=== PATIENT | male | born 1965 | race Caucasian/White ===

== ENCOUNTER → 2016-10-21 15:00 | Emergency (ER) | payer SELFPAY ==
[~2016-10-21 15:00] MED LIST: Acetaminophen TAB* 325 MG PO ONE
[2016-10-21 15:55] VITALS: BP 136/71
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
--- NOTE | 2016-10-21 17:37 | RAD ---
Indication: Lower back pain. CT of the lumbar spine was obtained in the axial plane. Sagittal and coronal reconstructed images were obtained. The vertebral bodies appear normal in height and alignment. No evidence of fracture is noted. There is minimal disc space narrowing at T12-L1 and L1-L2. No focal protrusion is identified. No central or foraminal stenosis is identified. IMPRESSION: No fracture of the lumbar spine is noted. Minimal degenerative disc disease at T12-L1 and L1-L2.
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
== END | disposition home or self-care (01) ==
LOC: ED 15:00
DX: S39.012A Strain of muscle, fascia and tendon of lower back, initial encounter (principal); V49.9XXA Car occupant (driver) (passenger) injured in unspecified traffic accident, initial encounter; Y93.9 Activity, unspecified; Y92.9 Unspecified place or not applicable; Z87.891 Personal history of nicotine dependence; R06.02 Shortness of breath
CPT/HCPCS: 72128; 72131; 99282

== ENCOUNTER 2017-05-30 12:08 | Emergency (ER) | payer OTHER ==
[2017-05-30] MEDS ORDERED: Ondansetron ODT TAB* 4 MG PO ONE (12:43)
--- NOTE | 2017-05-30 13:18 | RAD ---
Indication: Headache. Fall striking back of head 3 weeks ago. Subsequent intermittent headaches. Comparison: September 18, 2010 Technique: Noncontrast CT vertex of skull through foramen magnum. Report: Encephalomalacia at the medial aspect of the LEFT frontal lobe secondary to previous LEFT anterior cerebral artery distribution infarct. No new region of cruz matter white matter obscuration, intra or extra-axial hemorrhage, or mass effect. The cerebral sulci, ventricles, and basal cisterns are within normal limits. Unremarkable partially visualized orbital contents. No suspicious calvarial or skull base lesions evident. Clear visualized paranasal sinuses and mastoid air spaces. Negative for scalp hematoma. IMPRESSION: 1. Old LEFT frontal lobe infarct. 2. No traumatic injury or acute intracranial process evident.
[2017-05-30 14:21] VITALS: BP 127/87
--- NOTE | 2017-05-30 18:34 | ED ---
Kimberly Chang Thomas, scribed for Gerardo Suero MD on 05/30/17 at 1311 . Head Injury - HPI Summary HPI Summary: The patient is a 51 year old male who fell three weeks ago on the ice and hit the back of his head. He has been having headaches for the last three weeks. The patient went to his primary care physician, who told him to present to the emergency department if he became nauseous. Today, the patient developed nausea and has vomited twice. The patient additionally complains of photophobia. The patient denies loss of consciousness during the fall. He denies gait disruption and neck pain in the emergency department. - History Of Current Complaint Chief Complaint: EDHeadInjury Stated Complaint: VOMITIN,FALL THREE WEEKS HEADAHCE Time Seen by Provider: 05/30/17 12:22 Hx Obtained From: Patient Mechanism Of Injury: Fall From A Standing Position - onto ice Onset/Duration: Started Weeks Ago - 3, Still Present Onset of Pain: Post Accident Severity Currently: Moderate Severity Initially: Moderate Pain Intensity: 5 Pain Scale Used: 0-10 Numeric Location of Head Injury: Other: - back of head Aggravating Factor(s): Other: - light Alleviating Factor(s): Heat Associated Signs And Symptoms: Negative - neck pain, gait disruption, Nausea, Vomiting, Other: - photophobia - Allergies/Home Medications Allergies/Adverse Reactions: Allergies Allergy/AdvReac Type Severity Reaction Status Date / Time MS Penicillins [Penicillins] Allergy Anaphylatic Verified 10/21/16 15:56 Shock PMH/Surg Hx/FS Hx/Imm Hx Endocrine/Hematology History: Denies: Hx Diabetes, Hx Thyroid Disease Cardiovascular History: Reports: Hx Angina, Hx Angioplasty - 1999, Hx Coronary Artery Disease, Hx Hypercholesterolemia, Hx Hypertension, Hx Myocardial Infarction - 1999 Denies: Hx Valvular Heart Disease, Other Cardiovascular Problems/Disorders Respiratory History: Denies: Hx Asthma, Hx Chronic Obstructive Pulmonary Disease (COPD) GI History: Denies: Hx Ulcer Neurological History: Reports: Hx Seizures - October 2005 - Surgical History Surgery Procedure, Year, and Place: Cardiac Stent at age 33. Screws in RIGHT arm, September 2010. Hx Anesthesia Reactions: No Infectious Disease History: No Infectious Disease History: Denies: Hx Clostridium Difficile, Hx Hepatitis, Hx Human Immunodeficiency Virus (HIV), Hx of Known/Suspected MRSA, Hx Shingles, Hx Tuberculosis, Hx Known/ Suspected VRE, Hx Known/Suspected VRSA, History Other Infectious Disease, Traveled Outside the [place] in Last 30 Days - Family History Known Family History: Positive: Blood Disorder Family History: DVT - brother - Social History Alcohol Use: Occasionally Alcohol Amount: 6 pack per month Hx Substance Use: No Substance Use Type: Reports: None Hx Tobacco Use: Yes Smoking Status (MU): Former Smoker Type: Cigarettes Amount Used/How Often: 1ppd Length of Time of Smoking/Using Tobacco: 28 years Have You Smoked in the Last Year: No Review of Systems Negative: Fever Positive: Photophobia Positive: Vomiting, Nausea Negative: Other - neck pain Neurological: Negative - gait disruption Positive: Headache All Other Systems Reviewed And Are Negative: Yes Physical Exam - Summary Physical Exam Summary: VITAL SIGNS: Reviewed. GENERAL: Patient is a well-developed and nourished male who is lying comfortable in the stretcher. Patient is not in any acute respiratory distress. HEAD AND FACE: No signs of trauma. No ecchymosis, hematomas or skull depressions. No sinus tenderness. EYES: PERRLA, EOMI x 2, No injected conjunctiva, no nystagmus. No photophobia. EARS: Hearing grossly intact. Ear canals and tympanic membranes are within normal limits. MOUTH: Oropharynx within normal limits. NECK: Supple, trachea is midline, no adenopathy, no JVD, no carotid bruit, no c- spine tenderness, neck with full ROM. No meningeal signs, no Kernig's or brudzinskis signs. CHEST: Symmetric, no tenderness at palpation LUNGS: Clear to auscultation bilaterally. No wheezing or crackles. CVS: Regular rate and rhythm, S1 and S2 present, no murmurs or gallops appreciated. ABDOMEN: Soft, non-tender. No signs of distention. No rebound no guarding, and no masses palpated. Bowel sounds are normal. EXTREMITIES: FROM in all major joints, no edema, no cyanosis or clubbing. NEURO: Alert and oriented x 3. No acute neurological deficits. Speech is normal and follows commands. SKIN: Dry and warm GCS: 15 Triage Information Reviewed: Yes Vital Signs On Initial Exam: Initial Vitals Temp Pulse Resp BP Pulse Ox 97.5 F 57 17 158/94 97 05/30/17 12:16 05/30/17 12:16 05/30/17 12:16 05/30/17 12:16 05/30/17 12:16 Vital Signs Reviewed: Yes Diagnostics - Vital Signs Vital Signs Temp Pulse Resp BP Pulse Ox 05/30/17 12:16 97.5 F 57 17 158/94 97 - Laboratory Lab Statement: Any lab studies that have been ordered have been reviewed, and results considered in the medical decision making process. - CT CT Brain CT Interpretation: No Acute Changes - 1. Old LEFT frontal lobe infarct. 2. No traumatic injury or acute intracranial process evident. Dr. Suero has reviewed this report. CT Interpretation Completed By: Radiologist Head Injury Course/Dx Assessment/Plan: The patient is a 51 year old male who fell three weeks ago on the ice and hit the back of his head. He has been having headaches for the last three weeks. The patient went to his primary care physician, who told him to present to the emergency department if he became nauseous. Today, the patient developed nausea and has vomited twice. The patient additionally complains of photophobia. The patient denies loss of consciousness during the fall. He denies gait disruption and neck pain in the emergency department. The CT is negative for intracranial pathology. The patient was given Zofran in the emergency department, and the symptoms disappeared. The patient is asymptomatic and the neurological exam was normal. Therefore, the patient will be discharged home to follow up with primary care. - Diagnoses Differential Diagnosis/HQI/PQRI: Cervical Sprain, Concussion Without LOC, Contusion, Hematoma Provider Diagnoses: Head contusion Discharge - Discharge Plan Condition: Stable Disposition: HOME Prescriptions: Ondansetron TAB* [Zofran 4 MG Tab*] 4 mg PO Q6H PRN #10 tab PRN Reason: Nausea Patient Education Materials: Contusion in Adults (ED) Referrals: Lupe Rivera MD [Primary Care Provider] - 3 Days Additional Instructions: Follow up with your primary care provider in three days. Return to the emergency department for any new or worsening symptoms. The documentation as recorded by the Kimberly allred Thomas accurately reflects the service I personally performed and the decisions made by Pio luna Walter, MD.
== END 2017-05-30 14:20 | disposition home or self-care (01) ==
LOC: ED 12:08
DX: S00.93XA Contusion of unspecified part of head, initial encounter (principal); R51 Headache; H53.149 Visual discomfort, unspecified; R11.2 Nausea with vomiting, unspecified; Z87.891 Personal history of nicotine dependence; W00.9XXA Unspecified fall due to ice and snow, initial encounter; Y92.9 Unspecified place or not applicable; Z88.0 Allergy status to penicillin
CPT/HCPCS: 70450; 99282; A9270-GY

== ENCOUNTER 2017-06-25 13:57 | Inpatient (IN) | payer OTHER ==
[2017-06-25] MEDS ORDERED: NS 0.9% 1000 ML* 1,000 ML IV ONE (14:34)
[2017-06-25 15:01] LABS: ABS Basophils 0 10^3/ul (0-0.2); ABS Eosinophils 0.1 10^3/ul (0-0.6); ABS Lymphocytes 1.1 10^3/ul (1.0-4.8); ABS Monocytes 0.5 10^3/ul (0-0.8); ABS Neutrophils 5.1 10^3/ul (1.5-7.7); ABS Nucleated RBC 0 10^3/ul; Eosinophil % 1.2 % (0-6); Hematocrit 43 % (42-52); Hemoglobin 14.9 g/dl (14.0-18.0); Lymphocyte % 16.6 % (25-47); Mean Corpuscular HGB Conc 35 g/dl (31-36); Mean Corpuscular Hemoglobin 31 pg (27-31); Mean Corpuscular Volume 89 fL (80-94); Mean Platelet Volume 8 um3 (7.4-10.4); Nucleated Red Blood Cells % 0; Platelet Count 229 10^3/ul (150-450); Red Cell Distribution Width 13 % (10.5-15); White Blood Count 6.9 10^3/ul (3.5-10.8)
[2017-06-25 15:09] LABS: INR 1.01 (0.77-1.02)
[2017-06-25 15:17] LABS: EGFR Non-African American 87.2 (>60)
[2017-06-25] MEDS ORDERED: Ondansetron TAB* 4 MG PO PRN (16:20)
[2017-06-25] MEDS ORDERED: Acetaminophen TAB* 325 MG PO PRN (16:20)
[2017-06-25] MEDS ORDERED: Ondansetron INJ* 2 MG/ML VIAL IV PRN (16:22)
[2017-06-25] MEDS ORDERED: Acetaminophen TAB* 325 MG PO ONE (17:08)
--- NOTE | 2017-06-25 17:25 | PN ---
Progress Note - Progress Note Date of Service: 06/25/17 Note: Neurosurgery Admit Note Patient with fall at end of April. Has had progressive headaches for 4 weeks. referred for outpatient MRI today which showed bilateral subacute SDH.Seen in ER and was awake,alert PMH of stroke several yrs ago and seizure disordeer on Lamictal Exam reveals mild weakness LUE with pronator drift Plan Admit for bilateral maura hole drainage of SDH in AM Full H and P dictated.
[2017-06-25] MEDS: lamoTRIgine TAB(*) 100 MG PO SCH (20:35)
[2017-06-25] MEDS: HYDROcodone/ACETAMIN 5-325 MG* 1 TAB PO PRN (20:35)
--- NOTE | 2017-06-25 20:52 | HP ---
CC: Dr. Jaramillo; Dr. Meek * HISTORY AND PHYSICAL: DATE OF ADMISSION: 06/25/17 TIME OF ADMISSION: 5 p.m. CHIEF COMPLAINT: Headache. HISTORY OF PRESENT ILLNESS: This is a 51-year-old man with a history of coronary artery disease and cerebro-vascular disease, who presents from home with 6 weeks of a headache after a fall on the ice and was found to have a subdural hematoma today on an outpatient MRI. The fall occurred on 05/13/17 at his home when he walked outside on an icy porch and fell backwards and hit his head. At that time, his heard him fall and came out to evaluate to him. He was awake the whole time and has recollection of the event, but she says he was confused and could not talk to her for a few seconds. However, he felt better after a few seconds and continued on with his day and decided not to come for evaluation. However, over the next several days, he had ongoing headaches, so he went to his primary care physician. His PCP said to come to the emergency department if he experienced vomiting. On 05/30/17, nausea and vomiting began. So, he presented to the emergency department, where a head CT was obtained at that time. The brain CT report is read as old left frontal lobe infarct and no traumatic injury or acute intracranial process was evident. Since that time, he has had ongoing daily headaches that have been unrelenting in nature. He localizes them to his bilateral temples. The pain is constant and initially was aided with Tylenol; however, recently Tylenol has not helped at all. He has had ongoing nausea and vomiting and his also described some periods of confusion such as when he was attempting to back into the garage and hit the gas pedal instead of the breaks. He had been continuing to work; however, was unable to over the past 2 weeks due to the headache. He has been more sleepy than usual. He does not notice any change in the headache with position, lying down versus sitting up. However, does note that the headache is worse at the end of the day than at the beginning of the day. He denies any other trauma since 05/13/17. No falls or accidents otherwise. PAST MEDICAL HISTORY: 1. Coronary artery disease, status post [place] [address] Faria. 2. CVA, on 01/29/04, followed by Dr. Jaramillo. 3. Hypertension. HOME MEDICATIONS: 1. Lamotrigine 200 mg b.i.d. 2. Enalapril 10 mg daily. 3. Pravastatin 40 mg daily. 4. Aspirin 81 mg daily. SOCIAL HISTORY: He is a former smoker. He does not drink alcohol or use any other drugs. He lives in a house with his , and works. REVIEW OF SYSTEMS: He denies recent fevers, chills, vision changes, auditory changes, slurred speech, weakness, numbness, chest pain, shortness of breath, palpitations. PHYSICAL EXAMINATION GENERAL: Alert, well-appearing male, in no distress. He is oriented x3 and has an appropriate affect. VITAL SIGNS: Blood pressure 139/79, heart rate 66, pulse ox 97% on room air, temperature 98 degrees. HEENT: Pupils are 3 mm bilaterally and reactive to light. He does have nystagmus present on both sides that fatigues after about 8 seconds. He has no pharyngeal exudates or erythema. No mucosal lesions. His face is symmetric. NECK: No . No cervical adenopathy. Thyroid is not palpable. CHEST: Regular rate and rhythm. No murmurs. PMI nondisplaced. LUNGS: Clear bilaterally. ABDOMEN: Soft, nontender, nondistended. No guarding or rebound. EXTREMITIES: Healed incision is present in the right forearm. No lower extremity edema is noted. No rashes or ulcers. NEUROLOGIC: Strength is 5+ in all 4 extremities. Sensation is grossly intact. His coordination is intact. His recall is intact as is his short-term memory and object naming. DIAGNOSTIC STUDIES/LAB DATA: White blood cells 6.9, hemoglobin 14.9, platelets 229. INR of 1.0. Sodium 135, potassium 4.1, chloride 100, bicarb 27 , BUN 17, creatinine 0.91, glucose 121. MRI of the brain with and without contrast today shows large bilateral subacute frontoparietal subdural hematomas with subfalcine shift to the left and effacement of the basal cistern. ASSESSMENT AND PLAN: This is a 51-year-old man with history of coronary artery disease and cerebrovascular accident, who presents after an outpatient MRI found large subdural hematoma approximately 6 weeks after a fall at home. 1. Large bilateral frontoparietal subdural hematoma. He will be admitted under the hospitalist service. Dr. Meek has seen and evaluated the patient in the emergency department and plans to take him to the OR for evacuation of the subdural hematoma tomorrow. This evening, we will manage his pain and his blood pressure is currently well controlled and his aspirin will be held. 2. Coronary artery disease. As above, his aspirin will be held. He is not a beta akiko at home. We will not initiate one at this time, but we will continue his statin. He has no chest pain and has good exercise tolerance. 3. Cerebrovascular accident in 2003. He has no residual deficits from this. Again, we will hold his aspirin. 4. DVT prophylaxis. SCDs given the subdural hematoma. 5. Diet. Liquids for tonight and n.p.o. after midnight. [id number]/[facility] #: [id number] MTDRoni
--- NOTE | 2017-06-25 21:01 | HP ---
ADMISSION HISTORY AND PHYSICAL: DATE OF ADMISSION: 06/25/17 CHIEF COMPLAINT: Headache. HISTORY OF PRESENT ILLNESS: This 51-year-old gentleman fell back at the end of April hitting his head on a sidewalk. He did not lose consciousness, but since that time, has had difficulty with headaches. He was seen at [facility] on 05/30/17, at which time a CT scan of his brain was done, which was interpreted as showing no acute changes. In retrospect, the patient was noted to have isodense subdural hematomas at that time. He has continued to have headaches and was scheduled for an outpatient MRI study, which he had today. While undergoing his MRI scan, he got nauseated and had emesis. His MRI scan showed significant bilateral subacute subdural hematomas and he was sent to the emergency room by Neurology. When seen in the emergency room, he is awake, alert and complained of headache. PAST MEDICAL HISTORY: Significant for previous stroke leaving him with some _ right____- sided weakness several years ago. He also has a seizure disorder for which he currently takes Lamictal and is under the care of Dr. Jaramillo. MEDICATIONS: Include: 1. Enalapril 10 mg p.o. daily. 2. Lamictal 200 mg p.o. twice daily. 3. Zofran 4 mg p.o. every 6 hours as needed for nausea. 4. Tylenol 650 mg p.o. every 4 hours as needed for pain. 5. He was also taking an aspirin daily. ALLERGIES: He is allergic to PENICILLIN. FAMILY HISTORY: Family history was taken and is noncontributory to this illness. SOCIAL HISTORY: Revealed that he has a supportive family and does not smoke or drink at this time. REVIEW OF SYSTEMS: A system review was performed and other than his cardiovascular review with hypertension and his neurologic review as noted above , the remainder of his system review did not contribute to this illness. PHYSICAL EXAMINATION VITAL SIGNS: He was noted to have a blood pressure of 133/86 with a pulse of 66 and respirations of 16. HEENT: Head was normocephalic with no scalp contusion or tenderness. Eyes revealed full range of extraocular movements with pupils that were equal and reactive to light. NECK: Supple. LUNGS: Clear to auscultation. CARDIOVASCULAR: Revealed a regular rate and rhythm. ABDOMEN: Soft with normal bowel sounds. No tenderness. EXTREMITIES: Revealed full range of active motion. NEUROLOGIC: Reveals his mental status to be normal. Motor examination revealed a mild hemiparesis in his left upper extremity with a component of drift noted. Sensory exam was intact to pinprick and light touch. Cranial nerves II through XII are intact. DIAGNOSTIC STUDIES: His MRI study was reviewed and showed significant bilateral subdural hematomas, right greater than left. IMPRESSION: Bilateral subdural hematomas. He is being admitted for drainage of his bilateral subdural collections. [id number]/[facility] #: [id number] [facility]
[2017-06-26] MEDS: HYDROcodone/ACETAMIN 5-325 MG* 1 TAB PO PRN (03:55)
[2017-06-26 06:19] LABS: ABS Basophils 0 10^3/ul (0-0.2); ABS Eosinophils 0.1 10^3/ul (0-0.6); ABS Lymphocytes 1.7 10^3/ul (1.0-4.8); ABS Monocytes 0.5 10^3/ul (0-0.8); ABS Neutrophils 3.6 10^3/ul (1.5-7.7); ABS Nucleated RBC 0 10^3/ul; Hematocrit 40 % (42-52); Hemoglobin 13.8 g/dl (14.0-18.0); Lymphocyte % 28.1 % (25-47); Mean Corpuscular HGB Conc 35 g/dl (31-36); Mean Corpuscular Hemoglobin 31 pg (27-31); Mean Corpuscular Volume 89 fL (80-94); Mean Platelet Volume 8 um3 (7.4-10.4); Nucleated Red Blood Cells % 0.2; Platelet Count 220 10^3/ul (150-450); Red Blood Count 4.46 10^6/ul (4.0-5.4); Red Cell Distribution Width 13 % (10.5-15); White Blood Count 5.9 10^3/ul (3.5-10.8)
[2017-06-26 06:41] LABS: EGFR Non-African American 96.9 (>60)
[2017-06-26] MEDS ORDERED: Famotidine IV* 10 MG/ML 2 ML (20 mg) IV SLOW PU ONE (08:33)
[2017-06-26] MEDS ORDERED: DiMENhydriNATE IV* 50 MG/ML VIAL IV PUSH PRN (08:37)
[2017-06-26] MEDS ORDERED: HYDROmorphone INJ* 1 MG/ML CARPUJECT SYRINGE IV PRN (08:37)
[2017-06-26] MEDS ORDERED: Acetaminophen IV 1GM/100ML * 1,000 MG/100 ML VIAL IVPB ONE (08:37)
[2017-06-26] MEDS ORDERED: Naloxone* 0.4 MG/ML 1 ML VIAL IV PRN (08:37)
[2017-06-26] MEDS ORDERED: fentaNYL* 50 MCG/ML 5 ML VIAL (250 MCG VIAL) ONE (08:58)
[2017-06-26] MEDS ORDERED: Midazolam* 1 MG/ML 5 ML VIAL (5 MG) ONE (08:58)
[2017-06-26] MEDS ORDERED: fentaNYL* 50 MCG/ML 2 ML VIAL (100 MCG VIAL) ONE (08:58)
[2017-06-26] MEDS ORDERED: Succinylcholine* 20 MG/ML 10 ML VIAL ONE (08:59)
[2017-06-26] MEDS ORDERED: Ondansetron INJ* 2 MG/ML VIAL ONE (08:59)
[2017-06-26] MEDS ORDERED: DiMENhydriNATE IV* 50 MG/ML VIAL ONE (08:59)
[2017-06-26] MEDS ORDERED: Propofol* 10 MG/ML 20 ML BTL IV PUSH ONE (08:59)
[2017-06-26] MEDS ORDERED: Dexamethasone IV* 4 MG/ML 1 ML (4 MG) ONE (08:59)
[2017-06-26] MEDS: Enalapril TAB* 5 MG PO SCH (09:00)
[2017-06-26] MEDS ORDERED: Clindamycin 900 MG IVPREMIX(* 0 MG/0 ML SDV IV ONE (09:08)
[2017-06-26] MEDS ORDERED: Famotidine IV* 10 MG/ML 2 ML (20 mg) ONE (09:13)
[2017-06-26] MEDS ORDERED: Lidocaine 1% MPF wEPI 200,000* 30 ML SDV ONE (09:18)
[2017-06-26] MEDS ORDERED: Thrombin 5,000 UNITS* 1 APPLIC KIT - topical use - TOPICAL ONE (09:18)
[2017-06-26] MEDS: lamoTRIgine TAB(*) 100 MG PO SCH ×2 (09:19→21:57)
[2017-06-26] MEDS ORDERED: Clindamycin 900 MG IVPREMIX(* 900 MG/50 ML SDV IV ONE (09:54)
[2017-06-26] MEDS ORDERED: Cisatracurium* 2 MG/ML MDV 5 ML ONE (10:08)
[2017-06-26] MEDS ORDERED: Glycopyrrolate IV* 0.2 MG/ML 1 ML VIAL ONE (10:22)
[2017-06-26] MEDS ORDERED: Neostigmine Methylsulfate* 1 MG/ML 10 ML VIAL (1 mg/ml) ONE (10:22)
[2017-06-26] MEDS ORDERED: Magnesium Hydroxide LIQ* 30 ML UDC PO PRN (10:40)
[2017-06-26] MEDS ORDERED: Labetalol IV* 5 MG/ML 20 ML VIAL IV PUSH PRN (10:49)
[2017-06-26] MEDS ORDERED: Acetaminophen IV 1GM/100ML * 100 ML IVPB SCH (11:00)
[2017-06-26] MEDS ORDERED: Acetaminophen IV 1GM/100ML * 100 ML ONE (11:00)
[2017-06-27 04:53] LABS: ABS Basophils 0 10^3/ul (0-0.2); ABS Eosinophils 0 10^3/ul (0-0.6); ABS Lymphocytes 1.3 10^3/ul (1.0-4.8); ABS Monocytes 0.6 10^3/ul (0-0.8); ABS Neutrophils 5.4 10^3/ul (1.5-7.7); ABS Nucleated RBC 0 10^3/ul; Eosinophil % 0.2 % (0-6); Hematocrit 37 % (42-52); Hemoglobin 12.8 g/dl (14.0-18.0); Lymphocyte % 17.8 % (25-47); Mean Corpuscular HGB Conc 35 g/dl (31-36); Mean Corpuscular Hemoglobin 31 pg (27-31); Mean Corpuscular Volume 88 fL (80-94); Mean Platelet Volume 8 um3 (7.4-10.4); Nucleated Red Blood Cells % 0; Platelet Count 213 10^3/ul (150-450); Red Blood Count 4.13 10^6/ul (4.0-5.4); Red Cell Distribution Width 13 % (10.5-15); White Blood Count 7.4 10^3/ul (3.5-10.8)
[2017-06-27 05:02] LABS: EGFR Non-African American 95.6 (>60)
--- NOTE | 2017-06-27 08:10 | RAD ---
HISTORY: Postop bilateral subdural hematoma COMPARISONS: MRI dated June 25, 2009 TECHNIQUE: Multiple contiguous axial CT scans were obtained of the head without intravenous contrast. FINDINGS: HEMORRHAGE/INFARCT: There is no hemorrhage or acute infarct. MASSES/SHIFT: There has been interval resolution of the subfalcine shift. The basal cisterns are preserved. There is no mass. EXTRA-AXIAL SPACES: There is been interval evacuation of the subdural hematomas bilaterally. There is minimal residual on the right measuring 0.2 cm in depth. There is pneumocephalus bilaterally. Surgical drains are noted in the subdural spaces bilaterally. SULCI AND VENTRICLES: The sulci and ventricles are normal in size and position for the patient's stated age. CEREBRUM: There is stable left frontal encephalomalacia. BRAINSTEM: There are no focal parenchymal abnormalities. CEREBELLUM: There are no focal parenchymal abnormalities. VESSELS: The vessels are grossly normal. PARANASAL SINUSES: The paranasal sinuses are clear. ORBITS: The orbits are unremarkable. BONES AND SOFT TISSUE: There is post surgical change to the skull. There is subcutaneous emphysema. OTHER: None IMPRESSION: 1. STATUS POST SURGICAL EVACUATION OF BILATERAL SUBDURAL HEMATOMAS. SUBDURAL DRAINS ARE NOTED. THERE IS ASSOCIATED PNEUMOCEPHALUS. 2. LEFT FRONTAL ENCEPHALOMALACIA CONSISTENT WITH REMOTE INFARCT.
--- NOTE | 2017-06-27 10:50 | PN ---
Progress Note - Progress Note Date of Service: 06/27/17 SOAP: Subjective: []POD # 1 Awake,alert,headache relieved Anxious to sit up Objective: [] Neuro intact F/U CT bilat pneumocephalus,subdural collections minimal now Assessment: []Satis post op course Plan: []Transfer to floor Drains removed Increase activity level
[2017-06-27] MEDS: Enalapril TAB* 5 MG PO SCH (10:55)
[2017-06-27] MEDS: lamoTRIgine TAB(*) 100 MG PO SCH ×2 (10:55→20:47)
--- NOTE | 2017-06-27 14:04 | OP ---
OPERATIVE REPORT: DATE OF OPERATION: 06/26/17 DATE OF : 61 SURGEON: Mark Anthony Meek MD. SEAT TRIMMER: JUNAID Stark ANESTHESIA: General. PRE-OP DIAGNOSIS: Bilateral subacute subdural hematomas. POST-OP DIAGNOSIS: Bilateral subacute subdural hematomas. OPERATIVE PROCEDURE: Bilateral maura hole drainage of subacute subdural hematomas. DESCRIPTION OF PROCEDURE: After satisfactory general anesthesia was obtained, the patient was placed in the operating room table in the supine position with the head supported on a donut headrest. The frontal region was then clipped, prepped and draped in sterile manner for bifrontal maura hole placem ent. [place] holes were outlined along the proximally, the coronal suture bilaterally, a distance of ap proximately 4 cm from the vertex on either side. Matching 3 cm vertical incisions were marked. The initial exposure was on the right side. The incision was infiltrated with 1% Xylocaine with epinephr ine after it was turned down sharply to the periosteum which was stripped away. A maura hole was plac ed with power drill. The dura was then opened with the monopolar cautery and brisk flow of maroon co lored subdural fluid exited under pressure. The subdural space was irrigated. A ventricular cathete r was then placed in the subdural space and also irrigated and tunneled anteriorly to serve as a post operative subdural drain. The wound was then irrigated again, after which a piece of Gelfoam was seth zhang over the maura hole defect. The galea was then approximated with 3-0 Vicryl suture. In a similar manner, maura hole was placed on the left side. The dura was opened and again fairly good flow of ma roon colored subdural fluid under pressure was noted. A drain was also placed in the subdural space i n this side and tunneled out anteriorly to the serve as a postoperative subdural drain. The wound wa s irrigated after which a piece of Gelfoam was placed over the maura hole defect and the galea reappro ximated with 3-0 Vicryl. Shannan were used for the skin bilaterally. The estimated blood loss was l ess than 50 cc. The final sponge, padding, and needle counts were correct. The patient was taken to the recovery room, extubated and in stable condition. [id number]/[facility] #: [id number]
[2017-06-28 07:28] VITALS: BP 124/69
[2017-06-28] MEDS: Enalapril TAB* 5 MG PO SCH (08:52)
[2017-06-28] MEDS: lamoTRIgine TAB(*) 100 MG PO SCH (08:53)
--- NOTE | 2017-06-30 19:39 | ED ---
Laura Chang Julia, scribed for Holland Serrano MD on 06/25/17 at 1438 . Headache - HPI Summary HPI Summary: This patient is a 51 year old M presenting [place] [facility] accompanied by his due to intermittent headaches since May 13 2017 after her fell and hit his head. Patient reports intermittent vomiting for the past few weeks and right extremity weakness. He reports he has coby taking Tylenol for his headaches. Patient was sent by his primary care physician to receive an MRI for his symptoms. Patient's states he had a CT scan performed that came back negative. - History Of Current Complaint Chief Complaint: EDHeadache Stated Complaint: FALL HEADPAIN SENT FROM Time Seen by Provider: 06/25/17 14:11 Hx Obtained From: Patient, Family/[employer] Onset/Duration: Started weeks ago, Still Present Timing: Intermittent, Lasting: Associated Signs And Symptoms: Vomiting Related History: Recent Trauma: - 05/13/17 - Allergies/Home Medications Allergies/Adverse Reactions: Allergies Allergy/AdvReac Type Severity Reaction Status Date / Time Penicillins Allergy Anaphylatic Verified 06/26/17 08:37 Shock Home Medications: Home Medications Aspirin EC Low Dose* [Ecotrin EC Low Dose 81 MG*] 81 mg PO DAILY 06/25/17 [ History Confirmed 06/25/17] PMH/Surg Hx/FS Hx/Imm Hx Endocrine/Hematology History: Denies: Hx Diabetes, Hx Thyroid Disease Cardiovascular History: Reports: Hx Angina, Hx Angioplasty - 1999, Hx Coronary Artery Disease, Hx Hypercholesterolemia, Hx Hypertension, Hx Myocardial Infarction - 1999 Denies: Hx Pacemaker/ICD, Hx Valvular Heart Disease, Other Cardiovascular Problems/Disorders Respiratory History: Denies: Hx Asthma, Hx Chronic Obstructive Pulmonary Disease (COPD) GI History: Denies: Hx Ulcer History: Denies: Hx Renal Disease Sensory History: Denies: Hx Hearing Aid Neurological History: Reports: Hx Seizures - October 2005 Psychiatric History: Denies: Hx Panic Disorder - Surgical History Surgery Procedure, Year, and Place: Cardiac Stent at age 33. Screws in RIGHT arm, September 2010. Hx Anesthesia Reactions: No Infectious Disease History: No Infectious Disease History: Denies: Hx Clostridium Difficile, Hx Hepatitis, Hx Human Immunodeficiency Virus (HIV), Hx of Known/Suspected MRSA, Hx Shingles, Hx Tuberculosis, Hx Known/ Suspected VRE, Hx Known/Suspected VRSA, History Other Infectious Disease, Traveled Outside the [place] in Last 30 Days - Family History Known Family History: Positive: Blood Disorder Family History: DVT - brother - Social History Alcohol Use: Occasionally Alcohol Amount: 6 pack per month Hx Substance Use: No Substance Use Type: Reports: None Hx Tobacco Use: Yes Smoking Status (MU): Former Smoker Type: Cigarettes Amount Used/How Often: 1ppd Length of Time of Smoking/Using Tobacco: 28 years Have You Smoked in the Last Year: No Review of Systems Positive: Vomiting Positive: Headache, Weakness - right extremities All Other Systems Reviewed And Are Negative: Yes Physical Exam - Summary Physical Exam Summary: Appearance: Well-appearing, Well-nourished Skin: Warm, Dry, No rash Eyes: Normal, PERRL, EOMI, sclera anicteric ENT: Normal Neck: Supple, nontender Respiratory: Clear to auscultation Cardiovascular: S1, S2, no murmur, no rub, no gallop Abdomen: Soft, nontender, no organomegaly Bowel sounds: Present Musculoskeletal: Normal, Strength/ROM Intact, no edema, pulses symmetrical Neurological:, A&Ox3, cranial nerves II-XII WNL, follows commands, gait not tested, sensation intact to pin and light touch, minimal right facial weakness, slight slurred speech Psychiatric: affect normal, behavior appropriate, dressed appropriately, judgment intact Triage Information Reviewed: Yes Vital Signs On Initial Exam: Initial Vitals Temp Pulse Resp BP Pulse Ox 98.0 F 70 18 131/81 97 06/25/17 14:00 06/25/17 14:00 06/25/17 14:00 06/25/17 14:00 06/25/17 14:00 Vital Signs Reviewed: Yes Diagnostics - Vital Signs Vital Signs Temp Pulse Resp BP Pulse Ox 06/25/17 14:00 98.0 F 70 18 131/81 97 - Laboratory Lab Results: Lab Results 06/25/17 06/25/17 06/25/17 Range/Units 14:49 14:49 14:49 WBC 6.9 (3.5-10.8) 10^3/ul RBC 4.80 (4.0-5.4) 10^6/ul Hgb 14.9 (14.0-18.0) g/dl Hct 43 (42-52) % MCV 89 (80-94) fL MCH 31 (27-31) pg MCHC 35 (31-36) g/dl RDW 13 (10.5-15) % Plt Count 229 (150-450) 10^3/ul MPV 8 (7.4-10.4) um3 Neut % (Auto) 74.3 (38-83) % Lymph % (Auto) 16.6 L (25-47) % Chaves % (Auto) 7.3 H (0-7) % Eos % (Auto) 1.2 (0-6) % Baso % (Auto) 0.6 (0-2) % Absolute Neuts (auto) 5.1 (1.5-7.7) 10^3/ul Absolute Lymphs (auto) 1.1 (1.0-4.8) 10^3/ul Absolute Monos (auto) 0.5 (0-0.8) 10^3/ul Absolute Eos (auto) 0.1 (0-0.6) 10^3/ul Absolute Basos (auto) 0 (0-0.2) 10^3/ul Absolute Nucleated RBC 0 10^3/ul Nucleated RBC % 0 INR (Anticoag Therapy) 1.01 (0.77-1.02) APTT 31.3 (26.0-36.3) seconds Sodium 135 (133-145) mmol/L Potassium 4.1 (3.5-5.0) mmol/L Chloride 100 L (101-111) mmol/L Carbon Dioxide 27 (22-32) mmol/L Anion Gap 8 (2-11) mmol/L BUN 17 (6-24) mg/dL Creatinine 0.91 (0.67-1.17) mg/dL Est GFR ( Amer) 112.1 (>60) Est GFR (Non-Af Amer) 87.2 (>60) BUN/Creatinine Ratio 18.7 (8-20) Glucose 121 H (70-100) mg/dL Calcium 9.7 (8.6-10.3) mg/dL Total Bilirubin 1.50 H (0.2-1.0) mg/dL AST 19 (13-39) U/L ALT 33 (7-52) U/L Alkaline Phosphatase 60 (34-104) U/L Total Protein 7.3 (6.4-8.9) g/dL Albumin 4.7 (3.2-5.2) g/dL Globulin 2.6 (2-4) g/dL Albumin/Globulin Ratio 1.8 (1-3) Result Diagrams: 06/27/17 04:30 06/27/17 04:30 Lab Statement: Any lab studies that have been ordered have been reviewed, and results considered in the medical decision making process. - EKG 1443 Cardiac Rate: NL - 64 BPM EKG Rhythm: Sinus Rhythm EKG Interpretation: low voltage Headache Course/Dx - Course Course Of Treatment: Patient presents with intermittent headaches since May 13 2017 after her fell and hit his head. Patient reports intermittent vomiting for the past few weeks and right extremity weakness. states a previous CT scan was normal. An outpatient brain MRI revealed bilateral subdural hematoma with midline shift. Dr. Meek saw the patient in the ED and will preform surgery tomorrow morning. Dr. Bell agrees to admit at 14:50. - Diagnoses Provider Diagnoses: Bilateral subdural hematomas, Midline shift of brain, Hypertension, Hypercholesteremia - Physician Notifications Discussed Care Of Patient With: Mark Anthony Meek - neurosurgery Time Discussed With Above Provider: 14:27 Instructed by Provider To: MD Will See In ED Discharge - Discharge Plan Condition: Fair Disposition: ADMITTED TO [facility] Discharge Disposition Comment: admitted to [facility] The documentation as recorded by the Laura allred Julia accurately reflects the service I personally performed and the decisions made by me, Holland Serrano MD.
== END 2017-06-28 10:20 | disposition home or self-care (01) | DRG 26 ==
LOC: ED 13:57 → ICU 16:22 → SSU 06-27 12:41
PROVIDERS: ADMIT Neurological Surgery; ATTEND Neurological Surgery
PROC: 009430Z Drainage of Intracranial Subdural Space with Drainage Device, Percutaneous Approach (ICD-10-PCS; principal; 2017-06-26 09:30)
DX: S06.5X0A Traumatic subdural hemorrhage without loss of consciousness, initial encounter (principal); I69.351 Hemiplegia and hemiparesis following cerebral infarction affecting right dominant side; I11.9 Hypertensive heart disease without heart failure; W00.2XXA Other fall from one level to another due to ice and snow, initial encounter; G40.909 Epilepsy, unspecified, not intractable, without status epilepticus; I25.10 Atherosclerotic heart disease of native coronary artery without angina pectoris; Z79.1 Long term (current) use of non-steroidal anti-inflammatories (NSAID); Y92.008 Other place in unspecified non-institutional (private) residence as the place of occurrence of the external cause; Z79.82 Long term (current) use of aspirin; Z79.899 Other long term (current) drug therapy; Z88.0 Allergy status to penicillin; Z98.61 Coronary angioplasty status
CPT/HCPCS: 36415; 70450; 80048; 80053; 85025; 85610; 85730; 87641; 93005; 99284; A9270-GY; J0330; J1100; J1240; J2001; J2250; J2405; J2704; J2710; J3010

== ENCOUNTER 2018-11-23 15:30 | Emergency (ER) | payer OTHER ==
[2018-11-23 15:47] VITALS: BP 124/65
--- NOTE | 2018-11-23 15:55 | UC ---
Complaint Male HPI - HPI Summary HPI Summary: 52 yo male presents with two complaints: 1) Today at work he was lifting a heavy ~50lb item and felt a pop in his right groin with significant pain. Has had severe pain in the area since that time that is worse with palpation and ambulation. No testicular pain. No hx of hernia. 2) Today he noticed that his right leg is red, hot, and swollen. He tells me that he has a history of cellulitis and has been hospitalized for this in the past. He also has decreased feeling in his lower extremities due to a prior CVA - History of Current Complaint Chief Complaint: UCAbdominalPain Stated Complaint: GROIN PAIN Time Seen by Provider: 11/23/18 15:54 Hx Obtained From: Patient, Family/Alignment Specialist Onset/Duration: Sudden Onset Severity Initially: Severe Severity Currently: Severe Pain Intensity: 8 Pain Scale Used: 0-10 Numeric - Allergies/Home Medications Allergies/Adverse Reactions: Allergies Allergy/AdvReac Type Severity Reaction Status Date / Time Penicillins Allergy Anaphylatic Verified 11/23/18 15:47 Shock PMH/Surg Hx/FS Hx/Imm Hx - Additional Past Medical History Additional PMH: CVA Endocrine History: Dyslipidemia Cardiovascular History: Cardiac Disease, Hypertension Psychological History: Bipolar Disorder - Surgical History Surgical History: Yes Surgery Procedure, Year, and Place: Cardiac Stent at age 33. Screws in RIGHT arm, September 2010. SUBDURAL HEMATOMA DRAINED 08/2018 - Family History Known Family History: Positive: Blood Disorder Family History: DVT - brother - Social History Occupation: Employed Full-time Lives: With Family Alcohol Use: Rare Alcohol Amount: 6 pack per month Substance Use Type: None Smoking Status (MU): Former Smoker Type: Cigarettes Amount Used/How Often: 1ppd Length of Time of Smoking/Using Tobacco: 28 years Have You Smoked in the Last Year: No When Did the Patient Quit Smoking/Using Tobacco: October 2003 - Immunization History Most Recent Influenza Vaccination: 2018 Most Recent Tetanus Shot: 2012 Most Recent Pneumonia Vaccination: 2014 Review of Systems All Other Systems Reviewed And Are Negative: Yes Constitutional: Positive: Negative Skin: Positive: Other - Right, hot, swollen right leg Respiratory: Positive: Negative Cardiovascular: Positive: Negative Gastrointestinal: Positive: Negative Genitourinary: Positive: Other - right groin pain Neurovascular: Positive: Negative Musculoskeletal: Positive: Negative Neurological: Positive: Negative Psychological: Positive: Negative Physical Exam - Summary Physical Exam Summary: GENERAL: NAD. WDWN. No pain distress. SKIN: See MSK NECK: Supple. Nontender. No lymphadenopathy. CHEST: CTAB. No r/r/w. No accessory muscle use. Breathing comfortably and in no distress. CV: RRR. Without m/r/g. Pulses intact. Cap refill <2seconds ABDOMEN: RLQ/Right inguinal region with severe TTP. No appreciable hernia or mass. : NTTP testicles. No protruding mass appreciated. Negative hernia. MSK: RIGHT LOWER LEG: Moderate warmth with mild erythema and edema. TTP. FROM at right knee and ankle. NEURO: Alert. PSYCH: Age appropriate behavior. Triage Information Reviewed: Yes Vital Signs: Initial Vital Signs Temp 99.7 F 11/23/18 15:42 Pulse 84 11/23/18 15:42 Resp 18 11/23/18 15:42 BP 124/65 11/23/18 15:42 Pulse Ox 95 11/23/18 15:42 Vital Signs Reviewed: Yes Complaint Male Course/Dx - Course Course Of Treatment: Right groin pain - suspect spontaneously reduced hernia. He was given morphine 5mg IM for his discomfort. US: IMPRESSION: No evidence of hernia is identified. Regarding his right leg - suspect cellulitis vs DVT. US: IMPRESSION: NO EVIDENCE OF DEEP VENOUS THROMBOSIS IS IDENTIFIED. ALTHOUGH THE VESSELS ARE NONCOMPRESSIBLE ADEQUATE FLOW IS NOTED IN THE NONCOMPRESSIBILITY IS LIKELY DUE TO PATIENT'S BODY HABITUS. Pt developed a fever of 101.2F while in the clinic - given his comorbidities - I recommended that he be further evaluated in the ED for his cellulitis and fever. He was agreeable to this and his with him will drive him. - Differential Dx/Diagnosis Provider Diagnosis: Cellulitis of right leg, Right groin hernia Discharge - Sign-Out/Discharge Documenting (check all that apply): Patient Departure All imaging exams completed and their final reports reviewed: Yes - Discharge Plan Condition: Stable Disposition: HOME-RECOMMEND TO ED Referrals: Lupe Rivera MD [Primary Care Provider] - - Billing Disposition and Condition Condition: STABLE Disposition: Home-Recommend to ED - Attestation Statements Provider Attestation: Per institutional requirements, I have reviewed the chart. I did not personally evaluate, interact with , or disposition this patient.
[2018-11-23] MEDS ORDERED: Morphine 4 MG/ML VIAL (1 ml) 4 MG/ML VIAL IM ONE (15:58)
[2018-11-23] MEDS ORDERED: Morphine 10 MG/ML VIAL (1 ml) IM ONE (16:01)
== END 2018-11-23 17:15 | disposition home health service (06) ==
LOC: UCEAST 15:30
DX: K40.90 Unilateral inguinal hernia, without obstruction or gangrene, not specified as recurrent (principal); L03.115 Cellulitis of right lower limb; E78.5 Hyperlipidemia, unspecified; I10 Essential (primary) hypertension; F31.9 Bipolar disorder, unspecified; Z87.891 Personal history of nicotine dependence; Z86.73 Personal history of transient ischemic attack (TIA), and cerebral infarction without residual deficits; Z88.0 Allergy status to penicillin
CPT/HCPCS: 99212; G0463; J2270

== ENCOUNTER 2018-11-23 17:53 | Emergency (ER) | payer OTHER ==
[2018-11-23] MEDS ORDERED: Acetaminophen TAB* 325 MG PO ONE (18:23)
[2018-11-23 19:03] LABS: Hematocrit 44 % (42-52); Mean Corpuscular HGB Conc 34 g/dL (31-36); Mean Corpuscular Hemoglobin 31 pg (27-31); Mean Corpuscular Volume 90 fL (80-94); Mean Platelet Volume 7.6 fL (7.4-10.4); Platelet Count 174 10^3/uL (150-450); Red Blood Count 4.85 10^6 /uL (4.18-5.48); Red Cell Distribution Width 13 % (10-15); White Blood Count 12.8 10^3/uL (3.5-10.8)
[2018-11-23 19:14] LABS: INR 1.08 (0.82-1.09)
[2018-11-23 19:19] LABS: Albumin 5.1 g/dL (3.2-5.2); BUN/Creatinine Ratio 17.6 (8-20); Calcium 9.3 mg/dL (8.6-10.3); EGFR African American 92.1 (>60); EGFR Non-African American 76.1 (>60); Globulin 2.6 g/dL (2-4); Potassium 4.2 mmol/L (3.5-5.0); Total Bilirubin 2.6 mg/dL (0.2-1.0); Total Protein 7.7 g/dL (6.4-8.9)
[2018-11-23 19:30] LABS: ABS Lymphocytes 0.5 10^3/ul (1.0-4.8); ABS Monocytes 0.6 10^3/ul (0-0.8); ABS Neutrophils 11.8 10^3/ul (1.5-7.7); Lymphocyte % 3.7 %
--- NOTE | 2018-11-23 19:47 | ED ---
Lower Extremity - HPI Summary HPI Summary: A 52 y/o male presents to [facility] with a chief complaint of a reported blood clot in his right lower extremity after having an ultrasound at urgent care earlier today. He has an area of redness and swelling to his lower right lower extremity and pain in the upper portion of his right lower extremity. He denies any SOB or CP. He claims that he had a temperature of 101 and was given Tylenol earlier today. He denies a Hx of blood clots and denies taking blood thinners. 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 Aggravating Factor(s): Nothing Alleviating Factor(s): Nothing - Allergies/Home Medications Allergies/Adverse Reactions: Allergies Allergy/AdvReac Type Severity Reaction Status Date / Time Penicillins Allergy Anaphylatic Verified 11/23/18 15:47 Shock PMH/Surg Hx/FS Hx/Imm Hx Endocrine/Hematology History: Reports: Hx Diabetes - PRE DIABETES Denies: Hx Thyroid Disease Cardiovascular History: Reports: Hx Angina, Hx Angioplasty - 1999, Hx Coronary Artery Disease, Hx Hypercholesterolemia, Hx Hypertension, Hx Myocardial Infarction - 1999 Denies: Hx Pacemaker/ICD, Hx Valvular Heart Disease, Other Cardiovascular Problems/Disorders Respiratory History: Denies: Hx Asthma, Hx Chronic Obstructive Pulmonary Disease (COPD) GI History: Denies: Hx Ulcer History: Denies: Hx Renal Disease Sensory History: Denies: Hx Contacts or Glasses, Hx Hearing Aid Opthamlomology History: Denies: Hx Contacts or Glasses Neurological History: Reports: Hx Seizures - October 2005 Psychiatric History: Denies: Hx Panic Disorder - Surgical History Surgery Procedure, Year, and Place: Cardiac Stent at age 33. Screws in RIGHT arm, September 2010. SUBDURAL HEMATOMA DRAINED 08/2018 Hx Anesthesia Reactions: No Infectious Disease History: No Infectious Disease History: Denies: Hx Clostridium Difficile, Hx Hepatitis, Hx Human Immunodeficiency Virus (HIV), Hx of Known/Suspected MRSA, Hx Shingles, Hx Tuberculosis, Hx Known/ Suspected VRE, Hx Known/Suspected VRSA, History Other Infectious Disease, Traveled Outside the [place] in Last 30 Days - Family History Known Family History: Positive: Blood Disorder Family History: DVT - brother - Social History Alcohol Use: Rare Alcohol Amount: 6 pack per month Hx Substance Use: No Substance Use Type: Reports: None Hx Tobacco Use: Yes Smoking Status (MU): Former Smoker Type: Cigarettes Amount Used/How Often: 1ppd Length of Time of Smoking/Using Tobacco: 28 years Have You Smoked in the Last Year: No Review of Systems 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 (-) Distressed Skin: Warm, Dry HENT: Normocephalic; Atraumatic Eyes: Conjunctiva normal Neck: Musculoskeletal ROM normal neck. (-) JVD, (-) Stridor, (-) Tracheal deviation Cardio: Rhythm regular, rate normal, Heart sounds normal; Intact distal pulses; The pedal pulses are 2+ and symmetric. Radial pulses are 2+ and symmetric. (-) Murmur Pulmonary/Chest wall: Effort normal. (-) Respiratory distress, (-) Wheezes, (-) Rales Abd: Soft, (-) tenderness, (-) Distension, (-) Guarding, (-) Rebound Musculoskeletal: erythema and swelling RLE just 4cm from the knee extending down to the ankle does not affect foot or ankle Lymph: (-) Cervical adenopathy Neuro: Alert, Oriented x3 Psych: Mood and affect Normal Triage Information Reviewed: Yes Vital Signs On Initial Exam: Initial Vitals Temp Pulse Resp BP Pulse Ox 100.1 F 77 18 99/63 94 11/23/18 18:09 11/23/18 18:09 11/23/18 18:09 11/23/18 18:09 11/23/18 18:09 Vital Signs Reviewed: Yes Diagnostics - Vital Signs Vital Signs Temp Pulse Resp BP Pulse Ox 11/23/18 18:36 100.3 F 104/67 11/23/18 18:09 100.1 F 77 18 99/63 94 - Laboratory Lab Results: Lab Results 11/23/18 11/23/18 11/23/18 Range/Units 18:54 18:54 18:54 WBC 12.8 H (3.5-10.8) 10^3/uL RBC 4.85 (4.18-5.48) 10^6 /uL Hgb 15.0 (14.0-18.0) g/dL Hct 44 (42-52) % MCV 90 (80-94) fL MCH 31 (27-31) pg MCHC 34 (31-36) g/dL RDW 13 (10-15) % Plt Count 174 (150-450) 10^3/uL MPV 7.6 (7.4-10.4) fL Neut % (Auto) 91.8 % Lymph % (Auto) 3.7 % [place] % (Auto) 4.3 % Eos % (Auto) 0.0 % Baso % (Auto) 0.2 % Absolute Neuts (auto) 11.8 H (1.5-7.7) 10^3/ul Absolute Lymphs (auto) 0.5 L (1.0-4.8) 10^3/ul Absolute Monos (auto) 0.6 (0-0.8) 10^3/ul Absolute Eos (auto) 0.0 (0-0.6) 10^3/ul Absolute Basos (auto) 0.0 (0-0.2) 10^3/ul Absolute Nucleated RBC 0.0 10^3/ul Nucleated RBC % 0.0 INR (Anticoag Therapy) 1.08 (0.82-1.09) APTT 32.0 (26.0-38.0) seconds Sodium 134 L (135-145) mmol/L Potassium 4.2 (3.5-5.0) mmol/L Chloride 100 L (101-111) mmol/L Carbon Dioxide 25 (22-32) mmol/L Anion Gap 9 (2-11) mmol/L BUN 18 (6-24) mg/dL Creatinine 1.02 (0.67-1.17) mg/dL Est GFR ( Amer) 92.1 (>60) Est GFR (Non-Af Amer) 76.1 (>60) BUN/Creatinine Ratio 17.6 (8-20) Glucose 144 H (70-100) mg/dL Lactic Acid (0.5-2.0) mmol/L Calcium 9.3 (8.6-10.3) mg/dL Total Bilirubin 2.60 H (0.2-1.0) mg/dL AST 22 (13-39) U/L ALT 40 (7-52) U/L Alkaline Phosphatase 71 (34-104) U/L Total Protein 7.7 (6.4-8.9) g/dL Albumin 5.1 (3.2-5.2) g/dL Globulin 2.6 (2-4) g/dL Albumin/Globulin Ratio 2.0 (1-3) 11/23/18 Range/Units 18:54 WBC (3.5-10.8) 10^3/uL RBC (4.18-5.48) 10^6 /uL Hgb (14.0-18.0) g/dL Hct (42-52) % MCV (80-94) fL MCH (27-31) pg MCHC (31-36) g/dL RDW (10-15) % Plt Count (150-450) 10^3/uL MPV (7.4-10.4) fL Neut % (Auto) % Lymph % (Auto) % [place] % (Auto) % Eos % (Auto) % Baso % (Auto) % Absolute Neuts (auto) (1.5-7.7) 10^3/ul Absolute Lymphs (auto) (1.0-4.8) 10^3/ul Absolute Monos (auto) (0-0.8) 10^3/ul Absolute Eos (auto) (0-0.6) 10^3/ul Absolute Basos (auto) (0-0.2) 10^3/ul Absolute Nucleated RBC 10^3/ul Nucleated RBC % INR (Anticoag Therapy) (0.82-1.09) APTT (26.0-38.0) seconds Sodium (135-145) mmol/L Potassium (3.5-5.0) mmol/L Chloride (101-111) mmol/L Carbon Dioxide (22-32) mmol/L Anion Gap (2-11) mmol/L BUN (6-24) mg/dL Creatinine (0.67-1.17) mg/dL Est GFR ( Amer) (>60) Est GFR (Non-Af Amer) (>60) BUN/Creatinine Ratio (8-20) Glucose (70-100) mg/dL Lactic Acid 1.5 (0.5-2.0) mmol/L Calcium (8.6-10.3) mg/dL Total Bilirubin (0.2-1.0) mg/dL AST (13-39) U/L ALT (7-52) U/L Alkaline Phosphatase (34-104) U/L Total Protein (6.4-8.9) g/dL Albumin (3.2-5.2) g/dL Globulin (2-4) g/dL Albumin/Globulin Ratio (1-3) Result Diagrams: 11/23/18 18:54 11/23/18 18:54 Lab Statement: Any lab studies that have been ordered have been reviewed, and results considered in the medical decision making process. - Radiology CXR Radiology Interpretation Completed By: ED Physician Summary of Radiographic Findings: Interpretation limited by poor inspiration. No acute process. Pending official imaging report. Re-Evaluation - Re-Evaluation First Eval Re-Evaluation Time: 21:56 Change: Unchanged Comment: Pt does not want to stay for observation because his insurance did not cover it last time. He will be discharged with abx and if it worsens he can come back for admission. Second Eval Re-Evaluation Time: 21:46 Lower Extremity Course/Dx - Course Course Of Treatment: A 52 y/o male presents to [facility] with a chief complaint of a reported blood clot in his right lower extremity after having an ultrasound at urgent care earlier today. I reviewed the ultrasound report, which was negative for DVT. I also reviewed the clinical report from the physician at , who gave the patient a final diagnosis of cellulitis. The physical exam revealed erythema ansd swelling RLE just 4cm from the knee extending down to the ankle does not affect foot or ankle. In the ED course the patient was given Cleocin IV, po Bactrim and Tylenol PO. Clindamycin was used to cover SSTI pathogens, particularly Strep species, but Bactrim was added to improve MRSA coverage and because it is bacteriocidal. Blood work, chemistries and urines obtained and are WNL. CXR showed No acute process, Interpretation limited by poor inspiration. .Pt does not want to stay for observation because his insurance did not cover it last time. He will be discharged with abx and if it worsens he can come back for admission. The patient will be discharged with prescriptions for Bactrim, Zofran and Clindamycin. The patient is agreeable with this plan. - Diagnoses Provider Diagnoses: Cellulitis Discharge - Sign-Out/Discharge Documenting (check all that apply): Patient Departure - DC Patient Received Moderate/Deep Sedation with Procedure: No - Discharge Plan Condition: Stable Disposition: HOME Prescriptions: Clindamycin Cap(NF) [Clindamycin Cap 300 mg Cap(NF)] 300 mg PO TID #30 cap Ondansetron HCl [Zofran] 4 mg PO Q6HR #20 tablet Sulfamethox/Trimethoprim DS* [Bactrim DS 800/160 TAB*] 2 tab PO BID #38 tab Patient Education Materials: Cellulitis (ED) Print Language: COOK ISLAND[place] Forms: *Work Release Referrals: Lupe Rivera MD [Primary Care Provider] - - Billing Disposition and Condition Condition: STABLE Disposition: Home - Attestation Statements Document Initiated by Dainaibbryan: Yes Documenting Scribe: Eric Patel Provider For Whom Ryder is Documenting (Include Credential): Caterina Cain MD Scribe Attestation: Eric Chang, scribed for Caterina Ordoñez MD on 11/23/18 at 2327. Scribe Documentation Reviewed: Yes Provider Attestation: The documentation as recorded by the Eric allred accurately reflects the service I personally performed and the decisions made by me, Caterina Ordoñez MD Status of Scribbryan Document: Viewed
[2018-11-23] MEDS ORDERED: Clindamycin 600 MG/D5W BAG(*) 600 MG/50 ML BAG IV ONE (20:43)
[2018-11-23] MEDS ORDERED: Clindamycin 600 MG IVPREMIX(* 600 MG/50 ML SDV IV ONE (20:55)
[2018-11-23 21:21] LABS: Urine Appearance Clear; Urine Bilirubin Negative (Negative); Urine Blood Negative (Negative); Urine Color Yellow; Urine Glucose Negative (Negative); Urine Ketones Negative (Negative); Urine Nitrite Negative (Negative); Urine Protein Negative (Negative); Urine Specific Gravity 1.012 (1.010-1.030); Urine Urobilinogen Negative (Negative)
[2018-11-23] MEDS ORDERED: Sulfamethox/Trimethoprim DS 800/160* TAB PO ONE (22:08)
[2018-11-23] MEDS ORDERED: Ondansetron ODT TAB* 4 MG PO ONE (22:08)
[2018-11-23 22:49] VITALS: BP 116/68
== END 2018-11-23 22:45 | disposition home or self-care (01) ==
LOC: ED 17:53
DX: L03.115 Cellulitis of right lower limb (principal); I25.119 Atherosclerotic heart disease of native coronary artery with unspecified angina pectoris; I10 Essential (primary) hypertension; I25.2 Old myocardial infarction; Z87.891 Personal history of nicotine dependence; Z88.0 Allergy status to penicillin
CPT/HCPCS: 36415; 71045; 80053; 81003; 83605; 85025; 85610; 85730; 87040; 96374; 99284; A9270-GY

== ENCOUNTER 2019-04-12 13:45 | Observation (INO) | payer OTHER ==
[2019-04-12] MEDS ORDERED: NS 0.9% 1000 ML** 1,000 ML IV.FLUID IV ONE (15:35)
[2019-04-12] MEDS ORDERED: Clindamycin 600 MG/D5W BAG(*) 600 MG/50 ML BAG IV ONE (15:35)
[2019-04-12 15:51] LABS: ABS Lymphocytes 0.7 10^3/ul (1.0-4.8); ABS Monocytes 0.5 10^3/ul (0-0.8); Hematocrit 45 % (42-52); Hemoglobin 15.9 g/dL (14.0-18.0); Lymphocyte % 6.6 %; Mean Corpuscular HGB Conc 35 g/dL (31-36); Mean Corpuscular Hemoglobin 31 pg (27-31); Mean Corpuscular Volume 88 fL (80-94); Mean Platelet Volume 7.7 fL (7.4-10.4); Platelet Count 190 10^3/uL (150-450); Red Blood Count 5.16 10^6 /uL (4.18-5.48); Red Cell Distribution Width 13 % (10-15); White Blood Count 11.2 10^3/uL (3.5-10.8)
[2019-04-12 16:08] LABS: Albumin 4.7 g/dL (3.2-5.2); Albumin/Globulin Ratio 1.6 (1-3); BUN/Creatinine Ratio 20.6 (8-20); C Reactive Protein 171.97 mg/L (<8.01); Calcium 9.5 mg/dL (8.6-10.3); EGFR African American 91.8 (>60); EGFR Non-African American 75.8 (>60); Total Bilirubin 2.1 mg/dL (0.2-1.0); Total Protein 7.7 g/dL (6.4-8.9)
[2019-04-12] MEDS ORDERED: Acetaminophen TAB* 325 MG PO PRN (17:17)
[2019-04-12] MEDS ORDERED: Ondansetron INJ* 2 MG/ML VIAL IV PRN (17:17)
[2019-04-12] MEDS ORDERED: Acetaminophen TAB* 325 MG PO ONE (17:20)
--- NOTE | 2019-04-12 17:20 | ED ---
Skin Complaint - HPI Summary HPI Summary: This patient is a 53-year-old male with history of lower extremity cellulitis, groin pain and CVA from 2003 presenting to the ED with acute onset right lower extremity erythema, warmth with slight swelling and pain which his first noticed this afternoon. Unknown onset time. He also endorses illness with nausea and vomiting this morning, sweats and chills. He endorsed fever at home of 102. He states he has had this twice in the past and has needed to be admitted for this. They have ruled out DVT on both occasions per patient. Patient is currently on aspirin 81 mg but no other anticoagulation medication as he has had subdural hematomas. He denies any other symptoms including headache, shortness of breath, chest pain, abdominal pain. Patient does endorse some groin pain, which he states is typical for when he has a large cellulitis. He states he did injure the leg a few years ago and has had the cellulitis infections intermittently since that time, always improving with abx. Denies previous hx of lymphadenitis or any streaking. Always same area, from ankle to just BTK and has been associated with fever in the past. - History of Current Complaint Chief Complaint: EDRashSkinAbscess Time Seen by Provider: 04/12/19 14:27 Stated Complaint: CELLULITIS RIGHT LEG PER PT Hx Obtained From: Patient Onset/Duration: Started Hours Ago Skin Exposure Onset/Duration: Hours Ago Timing: Constant Onset Severity: Moderate Current Severity: Moderate Pain Intensity: 5 Pain Scale Used: 0-10 Numeric Skin Location: Leg - RLE Character: Pain, Redness Aggravating Symptom(s): Nothing Alleviating Symptom(s): Nothing Associated Signs & Symptoms: Negative, Fever, Red Streaks - lymphadenitis to the R midthigh - Additional Pertinent History Primary Care Physician: [id number] - Allergy/Home Medications Allergies/Adverse Reactions: Allergies Allergy/AdvReac Type Severity Reaction Status Date / Time Penicillins Allergy Anaphylatic Verified 04/12/19 14:02 Shock Home Medications: Home Medications Atorvastatin* [Lipitor*] 80 mg PO DAILY 04/12/19 [History Confirmed 04/12/19] Enalapril TAB* [Vasotec TAB*] 10 mg PO DAILY 04/12/19 [History Confirmed ] lamoTRIgine TAB(*) [LaMICtal TAB(*)] 200 mg PO BID 04/12/19 [History Confirmed 04/12/19] PMH/Surg Hx/FS Hx/Imm Hx Previously Healthy: Yes Endocrine/Hematology History: Reports: Hx Diabetes - PRE DIABETES Denies: Hx Thyroid Disease Cardiovascular History: Reports: Hx Angina, Hx Angioplasty - 1999, Hx Coronary Artery Disease, Hx Hypercholesterolemia, Hx Hypertension, Hx Myocardial Infarction - 1999 Denies: Hx Pacemaker/ICD, Hx Valvular Heart Disease, Other Cardiovascular Problems/Disorders Respiratory History: Denies: Hx Asthma, Hx Chronic Obstructive Pulmonary Disease (COPD) GI History: Denies: Hx Ulcer History: Denies: Hx Renal Disease Sensory History: Denies: Hx Contacts or Glasses, Hx Hearing Aid Opthamlomology History: Denies: Hx Contacts or Glasses Neurological History: Reports: Hx Seizures - October 2005 Psychiatric History: Denies: Hx Panic Disorder - Surgical History Surgery Procedure, Year, and Place: Cardiac Stent at age 33. Screws in RIGHT arm, September 2010. SUBDURAL HEMATOMA DRAINED 08/2018 Hx Anesthesia Reactions: No - Immunization History Hx Pertussis Vaccination: No Immunizations Up to Date: Yes Infectious Disease History: No Infectious Disease History: Denies: Hx Clostridium Difficile, Hx Hepatitis, Hx Human Immunodeficiency Virus (HIV), Hx of Known/Suspected MRSA, Hx Shingles, Hx Tuberculosis, Hx Known/ Suspected VRE, Hx Known/Suspected VRSA, History Other Infectious Disease, Traveled Outside the [place] in Last 30 Days - Family History Known Family History: Positive: Blood Disorder Family History: DVT - brother - Social History Occupation: Employed Full-time Lives: With Family Alcohol Use: Rare Alcohol Amount: 6 pack per month Hx Substance Use: No Substance Use Type: Reports: None Hx Tobacco Use: Yes Smoking Status (MU): Former Smoker Type: Cigarettes Amount Used/How Often: 1ppd Length of Time of Smoking/Using Tobacco: 28 years Have You Smoked in the Last Year: No Review of Systems Positive: Fever, Chills, Skin Diaphoresis. Negative: Fatigue Negative: Palpitations, Chest Pain Negative: Shortness Of Breath, Cough Negative: Arthralgia, Myalgia Positive: Other - rle erythema Neurological: Negative All Other Systems Reviewed And Are Negative: Yes Physical Exam Triage Information Reviewed: Yes Vital Signs On Initial Exam: Initial Vitals Temp Pulse Resp BP Pulse Ox 101.1 F 110 16 132/89 94 04/12/19 14:00 04/12/19 14:00 04/12/19 14:00 04/12/19 14:00 04/12/19 14:00 Vital Signs Reviewed: Yes Appearance: Positive: Well-Appearing, Well-Nourished Skin: Positive: Other - RLE erythema and warmth Head/Face: Positive: Normal Head/Face Inspection Eyes: Positive: EOMI, RONNI, Conjunctiva Clear Neck: Positive: Supple, No Lymphadenopathy Respiratory/Lung Sounds: Positive: Clear to Auscultation, Breath Sounds Present Cardiovascular: Positive: RRR, Pulses are Symmetrical in both Upper and Lower Extremities Musculoskeletal: Positive: Normal, Strength/ROM Intact Neurological: Positive: Sensory/Motor Intact, Alert, Oriented to Person Place, Time, Speech Normal Psychiatric: Positive: Affect/Mood Appropriate AVPU Assessment: Alert Procedures - Sedation Patient Received Moderate/Deep Sedation with Procedure: No Diagnostics - Vital Signs Vital Signs Temp Pulse Resp BP Pulse Ox 04/12/19 16:57 102 120/80 95 04/12/19 16:27 92 150/94 95 04/12/19 16:00 96 93 04/12/19 15:58 98 93 04/12/19 15:57 102 128/95 93 04/12/19 14:00 101.1 F 110 16 132/89 94 - Laboratory Lab Results: Lab Results 04/12/19 04/12/19 04/12/19 Range/Units 15:41 15:41 15:42 WBC 11.2 H (3.5-10.8) 10^3/uL RBC 5.16 (4.18-5.48) 10^6 /uL Hgb 15.9 (14.0-18.0) g/dL Hct 45 (42-52) % MCV 88 (80-94) fL MCH 31 (27-31) pg MCHC 35 (31-36) g/dL RDW 13 (10-15) % Plt Count 190 (150-450) 10^3/uL MPV 7.7 (7.4-10.4) fL Neut % (Auto) 88.8 % Lymph % (Auto) 6.6 % [place] % (Auto) 4.2 % Eos % (Auto) 0.0 % Baso % (Auto) 0.4 % Absolute Neuts (auto) 10.0 H (1.5-7.7) 10^3/ul Absolute Lymphs (auto) 0.7 L (1.0-4.8) 10^3/ul Absolute Monos (auto) 0.5 (0-0.8) 10^3/ul Absolute Eos (auto) 0.0 (0-0.6) 10^3/ul Absolute Basos (auto) 0.0 (0-0.2) 10^3/ul Absolute Nucleated RBC 0.0 10^3/ul Nucleated RBC % 0.0 ESR Pending Sodium 134 L (135-145) mmol/L Potassium 4.0 (3.5-5.0) mmol/L Chloride 101 (101-111) mmol/L Carbon Dioxide 23 (22-32) mmol/L Anion Gap 10 (2-11) mmol/L BUN 21 (6-24) mg/dL Creatinine 1.02 (0.67-1.17) mg/dL Est GFR ( Amer) 91.8 (>60) Est GFR (Non-Af Amer) 75.8 (>60) BUN/Creatinine Ratio 20.6 H (8-20) Glucose 138 H (70-100) mg/dL Lactic Acid 1.9 (0.5-2.0) mmol/L Calcium 9.5 (8.6-10.3) mg/dL Total Bilirubin 2.10 H (0.2-1.0) mg/dL AST 18 (13-39) U/L ALT 37 (7-52) U/L Alkaline Phosphatase 68 (34-104) U/L C-Reactive Protein 171.97 H (<8.01) mg/L Total Protein 7.7 (6.4-8.9) g/dL Albumin 4.7 (3.2-5.2) g/dL Globulin 3.0 (2-4) g/dL Albumin/Globulin Ratio 1.6 (1-3) 04/12/ Range/Units 16:42 WBC (3.5-10.8) 10^3/uL RBC (4.18-5.48) 10^6 /uL Hgb (14.0-18.0) g/dL Hct (42-52) % MCV (80-94) fL MCH (27-31) pg MCHC (31-36) g/dL RDW (10-15) % Plt Count (150-450) 10^3/uL MPV (7.4-10.4) fL Neut % (Auto) % Lymph % (Auto) % [place] % (Auto) % Eos % (Auto) % Baso % (Auto) % Absolute Neuts (auto) (1.5-7.7) 10^3/ul Absolute Lymphs (auto) (1.0-4.8) 10^3/ul Absolute Monos (auto) (0-0.8) 10^3/ul Absolute Eos (auto) (0-0.6) 10^3/ul Absolute Basos (auto) (0-0.2) 10^3/ul Absolute Nucleated RBC 10^3/ul Nucleated RBC % ESR Sodium (135-145) mmol/L Potassium (3.5-5.0) mmol/L Chloride (101-111) mmol/L Carbon Dioxide (22-32) mmol/L Anion Gap (2-11) mmol/L BUN (6-24) mg/dL Creatinine (0.67-1.17) mg/dL Est GFR ( Amer) (>60) Est GFR (Non-Af Amer) (>60) BUN/Creatinine Ratio (8-20) Glucose (70-100) mg/dL Lactic Acid 1.5 (0.5-2.0) mmol/L Calcium (8.6-10.3) mg/dL Total Bilirubin (0.2-1.0) mg/dL AST (13-39) U/L ALT (7-52) U/L Alkaline Phosphatase (34-104) U/L C-Reactive Protein (<8.01) mg/L Total Protein (6.4-8.9) g/dL Albumin (3.2-5.2) g/dL Globulin (2-4) g/dL Albumin/Globulin Ratio (1-3) Result Diagrams: 04/12/19 15:41 04/12/19 15:41 Lab Statement: Any lab studies that have been ordered have been reviewed, and results considered in the medical decision making process. Course/Dx - Course Course Of Treatment: Vital signs on arrival 101.1, tachycardia at 110, respirations 16. Due to tachycardia and febrile illness, septic protocol was initiated. Obvious right lower x-ray cellulitis with lymphadenitis from midthigh running upward to the groin. Patient is slightly diaphoretic, however states he feels otherwise well, does endorse some right lower extremity pain, rated 5/10. Denies any allergies. 2700 mL normal saline given, 600 mg IV clindamycin and labs are obtained. Labs show a slightly elevated white count and a CRP of 171. Due to patient's comorbidities and severity of symptoms, hospitalist consult was requested. Pt will be admitted. - Diagnoses Provider Diagnoses: Cellulitis - Physician Notifications Discussed Care Of Patient With: Reinaldo Wade Time Discussed With Above Provider: 17:00 Instructed by Provider To: Admit As Inpatient Discharge ED - Sign-Out/Discharge Documenting (check all that apply): Patient Departure - Discharge Plan Condition: Fair Disposition: ADMITTED TO [facility] - Billing Disposition and Condition Condition: FAIR Disposition: Admitted to [facility] - Attestation Statements Provider Attestation: I was available for consultation for this patient. I did not evaluate the patient or participate in any medical decision making or disposition decisions unless I am specifically named in the chart as having consulted on the patient. If I have consulted on the patient, please see my own ED note on the patient encounter. Jim Gomez MD
[2019-04-12 17:45] LABS: Erythrocyte Sed Rate 1 mm/Hr (0-19)
[2019-04-12] MEDS ORDERED: Enoxaparin(*) 40 MG/0.4 ML SYR SUBCUT SCH (18:00)
[2019-04-12] MEDS: lamoTRIgine TAB(*) 100 MG PO SCH (19:53)
--- NOTE | 2019-04-12 20:27 | HP ---
CC: Dr. Rivera; Dr. Jaramillo* ADMISSION HISTORY AND PHYSICAL: DATE OF ADMISSION: 04/12/19. PRIMARY CARE PROVIDER: Dr. Rivera's practice, although does not see Dr. Rivera anymore since she left. NEUROLOGIST: Dr. Jaramillo. HEALTHCARE PROXY: His . CODE STATUS: Full. SOURCE OF INFORMATION: History obtained from interview with the patient and his , and review of past medical records. RELIABILITY: Very good. CHIEF COMPLAINT: Right lower extremity erythema or redness. HISTORY OF PRESENT ILLNESS: This is a 53-year-old man with past medical history of recurrent infections in his right lower extremity, the first after suffered a trauma to his right lower extremity more recently in November, who had been in his usual state of health except for plantar fasciitis in his right foot. He woke up today feeling "sick to my stomach" and vomited once and then fell asleep on his couch for most in the morning. His checked on him and noticed his right lower leg beginning below his knee was erythematous. He felt hot at home, although there was no temperature checked. He has had no recent trauma to his right lower extremity, although noted that his right lower extremity was painful today. They proceeded to emergency room for evaluation since in the past, for what they believe 3 to 4 times, he has had right lower extremity cellulitis. In the emergency room, he was noticed to be tachycardic and febrile for which hospitalist service was consulted for admission. PAST MEDICAL HISTORY: Includes CAD with 2 PCIs, history of CVA, seizure disorder, bilateral subdural hematomas in 2018. HOME MEDICATIONS: Reviewed, include: 1. Aspirin 81 mg daily. 2. Enalapril 10 mg daily. 3. Atorvastatin 80 mg daily. 4. Lamictal 200 mg twice daily. ALLERGIES: To PENICILLINS. FAMILY HISTORY: No history of frequent infections or CAD. SOCIAL HISTORY: He is a inspector tool. He quit smoking in 2004 after about 40 pack years. No alcohol. REVIEW OF SYSTEMS: As per HPI. Otherwise, all other systems negative. PHYSICAL EXAMINATION GENERAL: Sitting up in bed. He is interactive, pleasant, in no apparent distress. VITAL SIGNS: Vitals in the emergency room, T-max 101.1, blood pressure 120/80, heart rate ranging between 92 and 110, he is breathing 16 breaths per minute, 98 % on room air. HEENT: Oropharynx is clear. He has moist mucous membranes. Sclerae are anicteric. NECK: He has non-elevated JVP. No cervical or supraclavicular lymphadenopathy. LUNGS: Clear to auscultation. HEART: He has regular rate and rhythm. No murmurs, rubs, or gallops. ABDOMEN: Soft, nontender, nondistended. EXTREMITIES: Warm and well perfused without clubbing, cyanosis, or edema. SKIN: Notable for well-demarcated area of erythema beginning on his right ankle extending up approximately 12 to 14 inches. There is a small area of skin breakdown at the most superior aspect of the erythema in his pretibial region. There is an area of streaking, lymphadenitis in his right groin, which is tender to palpation. His leg is hot to touch. NEUROLOGIC: He is alert and oriented x3. His cranial nerves II through XII are intact. He has no apparent anxiety, agitation, or depression. DIAGNOSTIC STUDIES/LAB DATA: Labs are reviewed. White blood cell count is 11.2. CRP is 171. Total bili is 2.1. Lactic acid is 1.9, decreasing to 1.5. Data reviewed, none. ASSESSMENT AND PLAN: This is a 53-year-old man with past medical history of recurrent infections in right lower extremity, presented to the hospital with recurrent erythema of his right lower extremity, found tachycardic and febrile consistent with sepsis. 1. Cellulitis, recurrent, unclear etiology for recurrence, although could be repeat cellulitis and happens to be in the same extremity. Lower extremity is most common. He does have a small area of skin breakdown, although his most superior aspect of the erythema seems less likely to be the source. Did not notice erythema prior to today, although it may have been slowly developing. He was given a dose of clindamycin in the emergency room. I will continue clindamycin at this time. He was given sepsis dose fluids in the emergency room , we will not continue after that. I also noticed the lactic acid is normal on presentation. I think the patient would benefit from outpatient Infectious Disease consultation should he not improve or have additional episodes of cellulitis. 2. Sepsis. In the setting of above cellulitis, continue clindamycin and fluid. 3. Coronary artery disease. Continue aspirin. 4. Seizure disorder. Continue Lamictal. 5. DVT prophylaxis. Heparin subcu. [id number]/[facility] #: [id number] [facility]
[2019-04-13] MEDS: Clindamycin 600 MG/D5W BAG(*) 600 MG/50 ML BAG IV SCH ×2 (01:25→08:45)
[2019-04-13 05:29] LABS: ABS Monocytes 0.6 10^3/ul (0-0.8); ABS Neutrophils 7.8 10^3/ul (1.5-7.7); Hematocrit 40 % (42-52); Hemoglobin 13.9 g/dL (14.0-18.0); Lymphocyte % 10.5 %; Mean Corpuscular HGB Conc 35 g/dL (31-36); Mean Corpuscular Hemoglobin 31 pg (27-31); Mean Corpuscular Volume 88 fL (80-94); Mean Platelet Volume 7.8 fL (7.4-10.4); Platelet Count 146 10^3/uL (150-450); Red Cell Distribution Width 13 % (10-15); White Blood Count 9.4 10^3/uL (3.5-10.8)
[2019-04-13 05:47] LABS: BUN/Creatinine Ratio 18.1 (8-20); Calcium 8.5 mg/dL (8.6-10.3); EGFR African American 116.4 (>60); EGFR Non-African American 96.2 (>60); Potassium 3.8 mmol/L (3.5-5.0)
[2019-04-13] MEDS: lamoTRIgine TAB(*) 100 MG PO SCH (07:20)
[2019-04-13] MEDS ORDERED: Enalapril TAB* 5 MG PO SCH (09:00)
[2019-04-13] MEDS ORDERED: Aspirin EC TAB* 81 MG TAB.EC PO SCH (09:00)
[2019-04-13] MEDS ORDERED: Atorvastatin* 80 MG TAB PO SCH (09:00)
[2019-04-13 11:47] VITALS: BP 130/64
--- NOTE | 2019-04-13 20:32 | DS ---
CC: Dr. Rivera* DISCHARGE SUMMARY: DATE OF ADMISSION: 04/12/19 DATE OF DISCHARGE: 04/13/19 PRIMARY CARE PROVIDER: Dr. Rivera's office. No longer follows with Dr. Rivera. DISPOSITION ON DISCHARGE: Home. CONDITION ON DISCHARGE: Improved/good. PRIMARY DIAGNOSIS: Cellulitis, right lower extremity. SECONDARY DIAGNOSES: Include: 1. History of coronary artery disease. 2. History of cerebrovascular accident. 3. Seizure disorder. MEDICATIONS ON DISCHARGE: 1. Aspirin 81 mg daily. 2. Enalapril 10 mg daily. 3. Atorvastatin 80 mg daily. 4. Lamictal 200 mg twice daily. 5. Bactrim double strength 1 tab twice daily for 7 days. IMAGING PERFORMED DURING HOSPITAL STAY: Right lower extremity venous Doppler study, impression: No DVT. Blood cultures: No growth till date. PERTINENT LABS: White blood cell count on presentation 11.2, on discharge 9.1. ESR is 1. CRP is 171. HISTORY OF PRESENT ILLNESS AND HOSPITAL COURSE: This is a 53-year-old man with past medical history as outlined in the history of present illness on the day of admission including recurrent episodes of right lower extremity cellulitis, presented to the hospital with erythema in his right lower extremity, was found febrile, T-max 101.1 as well as tachycardic to 110 on presentation, who received sepsis fluid bolus as well as started on clindamycin in the emergency room with improvement in his tachycardia and no additional fevers since presentation. He received a total of 3 doses of clindamycin with slight improvement in the area of erythema; however, much improvement in his pain in his right lower extremity as well as no additional fevers or tachycardia. He was started on Bactrim, given 2 doses from the inpatient hospital pharmacy to take tonight and tomorrow morning before being able to fill the Bactrim at his pharmacy of choice given the closure during the hol. The patient understood that if the pain or area of erythema were to worsen or he had fevers at home, he should return to the hospital immediately. There are no complications during the course of the hospital stay. FOLLOWUP INSTRUCTIONS: At followup, please: 1. Evaluate for area of erythema and improvement. 2. Follow up blood cultures until completion. Reasons to return to the hospital include, but are not limited to, recurrent or worsening symptoms including fevers, chills, night sweats, worsening erythema or pain in his right lower extremity, chest pain, shortness of breath, nausea, vomiting, lightheadedness, loss of consciousness, or inability to obtain or tolerate medications discussed with the patient; he acknowledged understanding. TIME SPENT: Greater than 60 minutes was spent on the discharge of this patient , greater than half was spent [id number] with the patient. [id number]/[facility] #: [id number] MTDD
== END 2019-04-13 12:05 | disposition home or self-care (01) ==
LOC: ED 13:45 → MED 17:17 → INTOOBSV 17:17
PROVIDERS: ADMIT Internal Medicine; ATTEND Internal Medicine
DX: L03.115 Cellulitis of right lower limb (principal); I25.10 Atherosclerotic heart disease of native coronary artery without angina pectoris; Z86.73 Personal history of transient ischemic attack (TIA), and cerebral infarction without residual deficits; I10 Essential (primary) hypertension; I25.2 Old myocardial infarction; G40.909 Epilepsy, unspecified, not intractable, without status epilepticus; R73.03 Prediabetes; Z79.82 Long term (current) use of aspirin; Z79.899 Other long term (current) drug therapy; Z87.891 Personal history of nicotine dependence; Z95.5 Presence of coronary angioplasty implant and graft
CPT/HCPCS: 36415; 80048; 80053; 83605; 85025; 85652; 86140; 87040; 96365; 96366; 96372; 96376; 99284; A9270-GY; G0378; J1650

== ENCOUNTER 2019-06-19 20:16 | Emergency (ER) | payer OTHER ==
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
--- OUTSIDE RECORDS SUMMARY | 2019-06-19 20:30 | XMS REPORT | Continuity of Care Document ---
:1965 External Reference #:[id number] Author Name Dale Flynn (transmitted by agent of provider Valerie Millan) Address [address], [place] [address] Care Team Providers Name Role Phone Yamile Romero MD - Family Medicine Care Team Information Physician'S Aide Problems Description No Information Available Social History Type Date Description Comments Sex Unknown Tobacco Use Start: Unknown End: Unknown Patient is a former smoker Allergies, Adverse Reactions, Alerts Active Allergies Reaction Severity Comments Date Penicillin made cellulitis worse 05/05/2019 Medications Active Medications SIG Qnty Indications Ordering Provider Date Enalapril Maleate Take 1 Tablet By Unknown 10mg Mouth Once Daily Tablets Atorvastatin Calcium Take 1 Tablet By Unknown 80mg Mouth Once Daily Tablets Lamotrigine Take 1 Tablet By Unknown 200mg Tablets Mouth Twice Daily Aspirin 81 1 by mouth every Unknown 81mg Tablets day Immunizations CPT Code Status Date Vaccine Lot # [id number] Given 01/18/2019 Influenza Vaccine [id number] Vital Signs Date Vital Result Comment 05/05/2019 1:33pm Height 68 inches 5'8" Weight 200.00 lb BP Systolic 111 mmHg BP Diastolic 71 mmHg BMI (Body Mass Index) 30.4 kg/m2 Heart Rate 71 /min Respiratory Rate 18 /min Pain Level 5 out of 10 Results Description No Information Available Procedures Description No Information Available Medical Devices Description No Information Available Encounters Description No Information Available Assessments Date Code Description Provider 05/05/2019 L03.115 Cellulitis of right lower limb Dale Flynn 05/05/2019 R60.0 Localized edema Dale Flynn 05/05/2019 I89.0 Lymphedema, not elsewhere classified Flynn, Dale 05/05/2019 Z68.30 Body mass index (BMI) 30.0-30.9, adult Dale Flynn Plan of Treatment 05/05/2019 - Dale FlynnL03.115 Cellulitis of right lower limbR60.0 Localized guhpoM05.0 Lymphedema, not elsewhere [id number] Body mass index (BMI) 30.0-30.9, adult Functional Status Description No Information Available Mental Status Description No Information Available Referrals Refer to Reason for Referral Status Appt Date Dale Flynn M.D. Created [address] [facility] [place] [address] [place] [address] [phone]
[2019-06-19] MEDS ORDERED: Acetaminophen TAB* 325 MG PO ONE (20:54)
[2019-06-19] MEDS ORDERED: Clindamycin 600 MG/D5W BAG(*) 600 MG/50 ML BAG IV ONE (20:54)
[2019-06-19] MEDS ORDERED: NS 0.9% 1000 ML** 1,000 ML IV ONE ×2 (20:54→21:55)
--- NOTE | 2019-06-19 21:02 | ED ---
Lower Extremity - HPI Summary HPI Summary: Patient is a 53 y/o M presenting to [facility] with cc of gradually worsening RLE edema and erythema onset at 1300 today. He reports a history of lymphedema and cellulitis with intermittent flare-ups since March 2019. Today, he noticed erythema in the lower R leg with swelling that has continued. Currently, there is erythema extending from the lateral to the medial aspect of the lower leg including the posterior side but sparing the anterior. He endorses pain in the medial aspect of the thigh which is typical for these episodes. Pain is rated 5/ 10 in severity. He notes that he has previously experienced streaking up extending up the leg, but he has not observed that yet today. He endorses fevers and chills. He has been using compression stockings on the lower extremities last used 06/17/2019. He has been using the air-compression pump daily on the leg. His last admission included an overnight stay with Clindamycin use to resolve his symptoms. He follows with the wound clinic. PMHx : subdermal hematoma, diabetes, angina, angioplasty, CAD, HLD, HTN, NH, cardiac stent. FHx: DVTs. Former smoker, rare EtOH, no substance use. Medications reviewed. Allergies noted. - History of Current Complaint Chief Complaint: EDExtremityLower Stated Complaint: RT LEG SWOLLEN PER PT Time Seen by Provider: 06/19/19 20:44 Hx Obtained From: Patient Mechanism Of Injury: Other - intermittent lymphedema with cellulitis Onset/Duration: Still Present Severity Initially: Mild Severity Currently: Moderate Pain Intensity: 5 Pain Scale Used: 0-10 Numeric Timing: Constant Location: Is Discrete @ - RLE below knee to ankle, around posterior Character Of Pain: Aching Associated Signs And Symptoms: Positive: Swelling, Redness, Fever, Other - chills Aggravating Factor(s): Nothing Alleviating Factor(s): Nothing - Allergies/Home Medications Allergies/Adverse Reactions: Allergies Allergy/AdvReac Type Severity Reaction Status Date / Time Penicillins Allergy Anaphylatic Verified 06/19/19 20:21 Shock Home Medications: Home Medications Aspirin EC TAB* [Ecotrin EC Low Dose 81 MG*] 81 mg PO DAILY 06/25/17 [History Confirmed 04/12/19] Atorvastatin* [Lipitor 80 MG*] 80 mg PO DAILY 04/12/19 [History Confirmed ] Enalapril TAB* [Vasotec TAB*] 10 mg PO DAILY 04/12/19 [History Confirmed ] lamoTRIgine TAB(*) [Lamictal TAB(*)] 200 mg PO BID 04/12/19 [History Confirmed 04/12/19] Sulfamethox/Trimethoprim DS* [Bactrim DS 800/160 TAB*] 1 tab PO BID #14 tab [Rx] clindamycin HCL [Clindamycin HCl] 450 mg PO TID 7 Days #63 capsule 06/19/19 [Rx] PMH/Surg Hx/FS Hx/Imm Hx Endocrine/Hematology History: Reports: Hx Diabetes - PRE DIABETES Denies: Hx Thyroid Disease Cardiovascular History: Reports: Hx Angina, Hx Angioplasty - 1999, Hx Coronary Artery Disease, Hx Hypercholesterolemia, Hx Hypertension, Hx Myocardial Infarction - 1999 Denies: Hx Pacemaker/ICD, Hx Valvular Heart Disease, Other Cardiovascular Problems/Disorders Respiratory History: Denies: Hx Asthma, Hx Chronic Obstructive Pulmonary Disease (COPD) GI History: Denies: Hx Ulcer History: Denies: Hx Renal Disease Sensory History: Denies: Hx Contacts or Glasses, Hx Hearing Aid Opthamlomology History: Denies: Hx Contacts or Glasses Neurological History: Reports: Hx Seizures - October 2005, Other Neuro Impairments/ Disorders - subdermal hematoma Psychiatric History: Denies: Hx Panic Disorder - Surgical History Surgical History: Yes Surgery Procedure, Year, and Place: Cardiac Stent at age 33. Screws in RIGHT arm, September 2010. SUBDURAL HEMATOMA DRAINED 08/2018 Hx Anesthesia Reactions: No Infectious Disease History: No Infectious Disease History: Denies: Hx Clostridium Difficile, Hx Hepatitis, Hx Human Immunodeficiency Virus (HIV), Hx of Known/Suspected MRSA, Hx Shingles, Hx Tuberculosis, Hx Known/ Suspected VRE, Hx Known/Suspected VRSA, History Other Infectious Disease, Traveled Outside the [place] in Last 30 Days - Family History Known Family History: Positive: Blood Disorder Family History: DVT - brother - Social History Alcohol Use: Rare Alcohol Amount: 6 pack per month Hx Substance Use: No Substance Use Type: Reports: None Hx Tobacco Use: Yes Smoking Status (MU): Former Smoker Type: Cigarettes Amount Used/How Often: 1ppd Length of Time of Smoking/Using Tobacco: 28 years Have You Smoked in the Last Year: No Review of Systems Positive: Fever, Chills Positive: Edema - RLE, Other - pain in medial aspect of R thigh Positive: Other - erythema RLE All Other Systems Reviewed And Are Negative: Yes Physical Exam - Summary Physical Exam Summary: Constitutional: Well-developed, Well-nourished, Alert. (-) Distressed Skin: Warm, Dry HENT: Normocephalic; Atraumatic Eyes: Conjunctiva normal Neck: Musculoskeletal ROM normal neck. (-) JVD, (-) Stridor, (-) Nuchal rigidity Cardio: Rhythm regular, rate tachycardic, Heart sounds normal; Intact distal pulses; Radial pulses are 2+ and symmetric. (-) Murmur Pulmonary/Chest wall: Effort normal. (-) Respiratory distress, (-) Wheezes, (-) Rales Abd: Soft, (-) tenderness, (-) Distension, (-) Guarding, (-) Rebound Musculoskeletal: (+) Trace edema of RLE, 2+ DP pulse, Erythema of the lateral RLE extending 4cm from the knee to the ankle. Lymph: (-) Cervical adenopathy Neuro: Alert, Oriented x3 Psych: Mood and affect Normal Triage Information Reviewed: Yes Vital Signs On Initial Exam: Initial Vitals Temp Pulse Resp BP Pulse Ox 100.3 F 111 16 133/86 95 06/19/19 20:17 06/19/19 20:17 06/19/19 20:17 06/19/19 20:17 06/19/19 20:17 Vital Signs Reviewed: Yes Procedures - Sedation Patient Received Moderate/Deep Sedation with Procedure: No Diagnostics - Vital Signs Vital Signs Temp Pulse Resp BP Pulse Ox 06/19/19 20:17 100.3 F 111 16 133/86 95 - Laboratory Result Diagrams: 06/19/19 21:02 06/19/19 21:02 Lab Statement: Any lab studies that have been ordered have been reviewed, and results considered in the medical decision making process. Re-Evaluation - Re-Evaluation First Eval Re-Evaluation Time: 23:25 Change: Improved Comment: Patient's HR NSR at 96 BPM, safe for d/c, all results discussed Lower Extremity Course/Dx - Course Course Of Treatment: 53 y/o male w hx DM and cellulitis p/w RLE cellulitis. - well appearing, VS tachycardic, febrile. Given 2 L IVF. Tylenol and motrin. LA 1.7, mild leukocytosis. CRP 14 (previously 171). Given one dose IV clindamcyin. Feeling improved. Prior admission blood cultures negative, was discharged after one day of IV abx. Patient feels well going home, BP stable and tachycardia resolved w HR in 90's. - send home on clindamycin, given one dose to take in AM - Diagnoses Provider Diagnoses: Cellulitis Discharge ED - Sign-Out/Discharge Documenting (check all that apply): Patient Departure - Patient will be discharged home. - Discharge Plan Condition: Stable Disposition: HOME Prescriptions: clindamycin HCL [Clindamycin HCl] 450 mg PO TID 7 Days #63 capsule Patient Education Materials: Cellulitis (ED) Referrals: Yamile Romero MD [Primary Care Provider] - 3 Days Additional Instructions: You were seen in the emergency department for cellulitis. please take clindamycin 3 times a day for one week. Please follow up with your primary care doctor in the next 2-3 days and return to the emergency department for continued fevers, spreading of the redness, worsening pain, feeling unwell,worsening or concerning symptoms. It was a pleasure taking care of you today. - Billing Disposition and Condition Condition: STABLE Disposition: Home - Attestation Statements Document Initiated by Ryder: Yes Documenting Dainaibe: Liv Waterman Provider For Whom Ryder is Documenting (Include Credential): Dr. Jim Gomez MD Scribe Attestation: Liv Chang, scribed for Dr. Jim Gomez MD on 06/20/19 at 0010. Scribe Documentation Reviewed: Yes Provider Attestation: The documentation as recorded by the Liv allred accurately reflects the service I personally performed and the decisions made by me, Dr. Jim Gomez MD Status of Scrpatience Document: Viewed
[2019-06-19 21:10] LABS: ABS Basophils 0.1 10^3/ul (0-0.2); ABS Lymphocytes 0.5 10^3/ul (1.0-4.8); ABS Monocytes 0.5 10^3/ul (0-0.8); ABS Neutrophils 11.1 10^3/ul (1.5-7.7); Hematocrit 45 % (42-52); Hemoglobin 15.8 g/dL (14.0-18.0); Lymphocyte % 3.9 %; Mean Corpuscular HGB Conc 36 g/dL (31-36); Mean Corpuscular Hemoglobin 31 pg (27-31); Mean Corpuscular Volume 86 fL (80-94); Platelet Count 167 10^3/uL (150-450); Red Blood Count 5.17 10^6 /uL (4.18-5.48); Red Cell Distribution Width 14 % (10-15); White Blood Count 12.1 10^3/uL (3.5-10.8)
[2019-06-19 21:29] LABS: Albumin/Globulin Ratio 1.9 (1-3); BUN/Creatinine Ratio 21.1 (8-20); Calcium 9.5 mg/dL (8.6-10.3); EGFR Non-African American 70.2 (>60); Globulin 2.7 g/dL (2-4); Potassium 4.3 mmol/L (3.5-5.0); Total Bilirubin 1.6 mg/dL (0.2-1.0); Total Protein 7.7 g/dL (6.4-8.9)
[2019-06-19 22:19] LABS: C Reactive Protein 14.72 mg/L (<8.01)
[2019-06-19] MEDS ORDERED: Clindamycin CAP* 150 MG PO ONE (22:37)
[2019-06-19] MEDS ORDERED: Ibuprofen TAB* 600 MG PO ONE (22:39)
[2019-06-20 00:06] VITALS: BP 119/76
== END 2019-06-20 | disposition home or self-care (01) ==
LOC: ED 20:16
DX: L03.115 Cellulitis of right lower limb (principal); R60.9 Edema, unspecified; R73.03 Prediabetes; I25.10 Atherosclerotic heart disease of native coronary artery without angina pectoris; Z88.0 Allergy status to penicillin; I25.2 Old myocardial infarction; E78.00 Pure hypercholesterolemia, unspecified; I10 Essential (primary) hypertension; Z79.82 Long term (current) use of aspirin; Z87.891 Personal history of nicotine dependence
CPT/HCPCS: 36415; 80053; 83605; 85025; 86140; 96361; 96365; 99283; A9270-GY

== ENCOUNTER 2019-08-05 15:58 | Emergency (ER) | payer OTHER ==
[2019-08-05 16:08] VITALS: BP 141/81
--- NOTE | 2019-08-05 16:50 | UC ---
HPI Wound/Suture Re-check - HPI Summary HPI Summary: 53yo male returning for removal of sutures from left thumb that were placed on . Denies pain. Denies bleeding or discharge. Denies redness. - History Of Current Complaint Chief Complaint: UCLaceration Stated Complaint: SUTURE REMOVAL Hx Obtained From: Patient Pain Intensity: 0 Pain Scale Used: 0-10 Numeric - Allergies/Home Medications Allergies/Adverse Reactions: Allergies Allergy/AdvReac Type Severity Reaction Status Date / Time Penicillins Allergy Anaphylatic Verified 08/05/19 16:09 Shock Home Medications: Home Medications Aspirin EC TAB* [Ecotrin EC Low Dose 81 MG*] 81 mg PO DAILY 06/25/17 [History Confirmed 08/05/19] Atorvastatin* [Lipitor 80 MG*] 80 mg PO DAILY 04/12/19 [History Confirmed ] Enalapril TAB* [Vasotec TAB*] 10 mg PO DAILY 04/12/19 [History Confirmed ] lamoTRIgine TAB(*) [Lamictal TAB(*)] 200 mg PO BID 04/12/19 [History Confirmed 08/05/19] PMH/Surg Hx/FS Hx/Imm Hx Endocrine History: Dyslipidemia Cardiovascular History: Hypertension - Surgical History Surgical History: Yes Surgery Procedure, Year, and Place: Cardiac Stent at age 33. Screws in RIGHT arm, September 2010. SUBDURAL HEMATOMA DRAINED 08/2018 - Family History Known Family History: Positive: Blood Disorder Family History: DVT - brother - Social History Alcohol Use: Rare Alcohol Amount: 6 pack per month Substance Use Type: None Smoking Status (MU): Former Smoker Type: Cigarettes Amount Used/How Often: 1ppd Length of Time of Smoking/Using Tobacco: 28 years Have You Smoked in the Last Year: No When Did the Patient Quit Smoking/Using Tobacco: October 2003 - Immunization History Most Recent Influenza Vaccination: "2 months ago" Most Recent Tetanus Shot: 2012 Most Recent Pneumonia Vaccination: 2014 Review of Systems All Other Systems Reviewed And Are Negative: No Constitutional: Positive: Negative. Negative: Fever, Chills Skin: Positive: Other - 4 sutures in left thumb Respiratory: Positive: Negative Cardiovascular: Positive: Negative Gastrointestinal: Positive: Negative Musculoskeletal: Positive: Negative. Negative: Arthralgia, Decreased ROM, Edema Neurological/Mental Status: Positive: Negative Physical Exam Triage Information Reviewed: Yes Appearance: Well-Appearing, No Pain Distress, Well-Nourished Vital Signs: Initial Vital Signs Temp 97.7 F 08/05/19 16:03 Pulse 65 08/05/19 16:03 Resp 18 08/05/19 16:03 BP 141/81 08/05/19 16:03 Pulse Ox 96 08/05/19 16:03 Vital Signs Reviewed: Yes Eyes: Positive: Conjunctiva Clear ENT: Positive: Hearing grossly normal Neck: Positive: Supple Respiratory: Positive: No respiratory distress, No accessory muscle use Cardiovascular: Positive: Pulses Normal, Brisk Capillary Refill Neurological Exam: Other - sensation grossly intact Neurological: Positive: Alert Psychological: Positive: Age Appropriate Behavior Skin: Positive: Other - healing laceration of pulp of left thumb with 4 sutures intact, no erythema or warmth, no bleeding or discharge, no TTP Course/Dx - Course Course Of Treatment: I removed 4 sutures from the left thumb. Instructed to continue to wash the wound daily and to continue to monitor for s/s of infection. Patient voiced understanding and agreed with treatment plan. - Diagnosis Provider Diagnosis: Encounter for removal of sutures Discharge ED - Sign-Out/Discharge Documenting (check all that apply): Patient Departure All imaging exams completed and their final reports reviewed: No Studies - Discharge Plan Condition: Stable Disposition: HOME Referrals: Yamile Romero MD [Primary Care Provider] - Additional Instructions: Continue to wash the area with warm water and soap daily while the wound continues to heal. Return if you experience any redness, warmth, or drainage from the wound. - Billing Disposition and Condition Condition: STABLE Disposition: Home
== END 2019-08-05 16:30 | disposition home or self-care (01) ==
LOC: UCEAST 15:58
DX: S61.012D Laceration without foreign body of left thumb without damage to nail, subsequent encounter (principal); X58.XXXD Exposure to other specified factors, subsequent encounter; E78.5 Hyperlipidemia, unspecified; I10 Essential (primary) hypertension; Z95.5 Presence of coronary angioplasty implant and graft; Z79.899 Other long term (current) drug therapy; Z88.0 Allergy status to penicillin; Z87.891 Personal history of nicotine dependence

== ENCOUNTER 2020-05-14 23:43 | Inpatient (IN) ==
[2020-05-14 23:57] LABS: ABS Lymphocytes 2.2 10^3/ul (1.0-4.8); ABS Monocytes 0.5 10^3/ul (0-0.8); ABS Neutrophils 2.4 10^3/ul (1.5-7.7); Eosinophil % 0.3 %; Hematocrit 41 % (42-52); Hemoglobin 14.4 g/dL (14.0-18.0); Lymphocyte % 43.6 %; Mean Corpuscular HGB Conc 35 g/dL (31-36); Mean Corpuscular Hemoglobin 31 pg (27-31); Mean Corpuscular Volume 88 fL (80-94); Mean Platelet Volume 7.8 fL (7.4-10.4); Nucleated Red Blood Cells % 0.1; Platelet Count 179 10^3/uL (150-450); Red Blood Count 4.67 10^6 /uL (4.18-5.48); Red Cell Distribution Width 14 % (10-15); White Blood Count 5.2 10^3/uL (3.5-10.8)
[2020-05-15] MEDS ORDERED: Iodixanol (CONTRAST) 320 MG/ML 100 ML SDV IV ONE (00:06)
[2020-05-15 00:08] LABS: Activated Partial Thrombo Time 29.4 seconds (26.0-38.0); INR 1.05 (0.82-1.09)
[2020-05-15 00:15] LABS: Albumin 4.4 g/dL (3.2-5.2); Albumin/Globulin Ratio 1.8 (1-3); BUN/Creatinine Ratio 29.5 (8-20); Calcium 9.1 mg/dL (8.6-10.3); EGFR African American 124.6 (>60); Globulin 2.5 g/dL (2-4); HDL Cholesterol 35.4 mg/dL; Potassium 3.9 mmol/L (3.5-5.0); Total Bilirubin 0.7 mg/dL (0.2-1.0); Total Protein 6.9 g/dL (6.4-8.9)
[2020-05-15 00:18] LABS: Troponin I 0.01 ng/mL (<0.03)
[2020-05-15 00:20] LABS: CKMB ng/mL 2.7 ng/mL (0.6-6.3)
[2020-05-15] MEDS: Enoxaparin 40 MG/0.4 ML SYR SUBCUT SCH (06:12)
[2020-05-15] MEDS: Aspirin EC 81 mg TAB.EC (enteric coated) PO SCH ×2 (06:12→09:52)
[2020-05-15] MEDS ORDERED: Perflutren Lipid Microsphere 3 ML VIAL ONE (13:20)
[2020-05-16] MEDS: Enoxaparin 40 MG/0.4 ML SYR SUBCUT SCH (08:46)
[2020-05-16] MEDS: Aspirin EC 81 mg TAB.EC (enteric coated) PO SCH (08:46)
[2020-05-16 16:00] VITALS: BP 114/68
== END 2020-05-16 17:30 | disposition home or self-care (01) | DRG 101 ==
LOC: ED 23:43 → MEDTELE 05-15 02:32
PROVIDERS: ADMIT Internal Medicine; ATTEND Internal Medicine